=== PATIENT | male | born 1955 | race Caucasian/White ===

== ENCOUNTER 2018-04-07 10:59 | Inpatient (IN) | payer OTHER ==
[2018-04-07 11:24] VITALS: BMI 25.1
--- NOTE | 2018-04-07 12:17 | HP ---
CIWA Score - CIWA Score Nausea/Vomitin Muscle Tremors: 2 Anxiety: 2 Agitation: 1-Slight > Activity Paroxysmal Sweats: 1-Minimal Palms Moist Orientation: 1-Uncertain about Date Tacttile Disturbances: 2-Mild Itch/Numbness/Burn Auditory Disturbances: 0-None Visual Disturbances: 0-None Headache: 1-Very Mild CIWA-Ar Total Score: 12 Admission ROS S - HPI Chief Complaint: Patient presents ETOH withdrawal symptoms. Allergies/Adverse Reactions: Allergies Allergy/AdvReac Type Severity Reaction Status Date / Time Penicillins Allergy Severe Verified 04/07/18 11:38 History of Present Illness: Patient present with ETOH withdrawal symptoms. Patient also sniffs heroin 1-2x a week one bag a day. Patient on Suboxone therapy program at [facility]. Verified Suboxone dose of 10mg daily by Mrs. Alber GALLOWAY. Patient states he only uses Heroin when he does not take his Suboxone. Started sniffing Heroin at age 34. Last time used heroin yesterday. Took dose of Suboxone today at [facility] before coming here to [facility]. Patient would like to start to decrease current dose of Suboxone as he will eventually like to stop taking medication. Patient also drinks 1 pint of Vodka daily since past year. Denies any Seizures from ETOH use. Last drink this morning. Has PMH of HTN. Denies SI/HI and suicide attempts. Exam Limitations: No Limitations - Ebola screening Have you traveled outside of the country in the last 21 days: No (N) Have you had contact with anyone from an Ebola affected area: No Have you been sick,other than usual withdrawal symptoms: No Do you have a fever: No - Review of Systems Constitutional: Chills, Night Sweats, Changes in sleep EENT: reports: No Symptoms Reported Respiratory: reports: No Symptoms reported Cardiac: reports: No Symptoms Reported GI: reports: Diarrhea, Nausea, Poor Fluid Intake, Abdominal cramping : reports: No Symptoms Reported Musculoskeletal: reports: Back Pain, Joint Pain, Muscle Pain Integumentary: reports: Sweating Neuro: reports: Headache, Numbness, Tremors Endocrine: reports: No Symptoms Reported Hematology: reports: No Symptoms Reported Psychiatric: reports: Orientated x3, Anxious, Depressed Patient History - Patient Medical History Hx Anemia: No Hx Asthma: No Hx Chronic Obstructive Pulmonary Disease (COPD): No Hx Cancer: No Hx Cardiac Disorders: Yes (Pt states he has a R bundle branch block) Hx Congestive Heart Failure: No Hx Hypertension: Yes (Treated with Losartan) Hx Hypercholesterolemia: No Hx Pacemaker: No HX Cerebrovascular Accident: No Hx Seizures: No Hx Dementia: No Hx Diabetes: No Hx Gastrointestinal Disorders: No Hx Liver Disease: No Hx Genitourinary Disorders: No Hx Sexually Transmitted Disorders: No Hx Renal Disease (ESRD): No Hx Thyroid Disease: No Hx Human Immunodeficiency Virus (HIV): No Hx Hepatitis C: No Hx Depression: No Hx Suicide Attempt: No Hx Bipolar Disorder: No Hx Schizophrenia: No - Patient Surgical History Past Surgical History: No - PPD History Previous Implant?: Yes Documented Results: Negative w/o proof Implanted On Prior [facility] Admission?: No PPD to be Administered?: Yes - Smoking Cessation Smoking history: Current every day smoker Have you smoked in the past 12 months: Yes Aproximately how many cigarettes per day: 2 Hx Chewing Tobacco Use: No Initiated information on smoking cessation: Yes 'Breaking Loose' booklet given: 04/07/18 - Substance & Tx. History Hx Alcohol Use: Yes Hx Substance Use: Yes Substance Use Type: Alcohol, Heroin Hx Substance Use Treatment: Yes - Substances Abused Alcohol Route: Oral Frequency: Daily Amount used: 1 pint vodka Age of first use: 11 Date of Last Use: 04/07/18 Heroin Route: Inhalation Frequency: 1-2 times per week Amount used: 1 bag Age of first use: 37 Date of Last Use: 04/06/18 Family Disease History - Family Disease History Family Disease History: [place]: Mother (, Breast cancer), Other: Father ( , Cirrhosis) Admission Physical Exam [facility] - Vital Signs Vital Signs: Vital Signs - 24 hr 04/07/18 11:22 Temperature 98.5 F Pulse Rate 98 H Respiratory 20 Rate Blood Pressure 137/86 - Physical General Appearance: Yes: No Apparent Distress, Appropriately Dressed, Tremorous , Sweating, Anxious HEENTM: Yes: EOMI, Hearing grossly Normal, Normocephalic, Normal Voice, MARCI, Pharynx Normal Respiratory: Yes: Chest Non-Tender, Lungs Clear, Normal Breath Sounds, No Respiratory Distress, No Accessory Muscle Use Neck: Yes: No masses,lesions,Nodules, Supple Breast: Yes: Breast Exam Deferred Cardiology: Yes: Regular Rhythm, Regular Rate, S1, S2 Abdominal: Yes: Normal Bowel Sounds, Non Tender, Soft Genitourinary: Yes: Within Normal Limits Back: Yes: Muscle Spasm Musculoskeletal: Yes: full range of Motion, Gait Steady, Back pain, Muscle Pain Extremities: Yes: Normal Inspection, Normal Range of Motion, Non-Tender, Tremors 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 intact, Fully Oriented, Alert, Motor Strength 5/5, Depressed Affect Integumentary: Yes: Normal Color, Warm, Moist Lymphatic: Yes: Within Normal Limits - Diagnostic (1) Alcohol dependence with uncomplicated withdrawal Current Visit: Yes Status: Acute (2) Encounter for monitoring Suboxone maintenance therapy Current Visit: Yes Status: Chronic (3) Opioid dependence Current Visit: Yes Status: Acute Qualifiers: Substance use status: uncomplicated Qualified Code(s): F11.20 - Opioid dependence, uncomplicated (4) HTN (hypertension) Current Visit: Yes Status: Chronic Qualifiers: Hypertension type: essential hypertension Qualified Code(s): I10 - Essential (primary) hypertension (5) Anxiety Current Visit: Yes Status: Suspected Cleared for Admission [facility] - Detox or Rehab [facility] Level of Care: Medically Managed Detox Regimen/Protocol: Librium [facility] Breath Alcohol Content Breath Alcohol Content: 0.023 Urine Drug Screen - Results Drug Screen Negative: No Urine Drug Screen Results: OPI-Opiates
[2018-04-07] MEDS ORDERED: MAGNESIUM CITRATE 300 ML BOTTLE PO PRN (12:28)
[2018-04-07] MEDS ORDERED: P-EPHED 60MG/TRIPROLIDI 2.5MG TABLET PO PRN (12:28)
[2018-04-07] MEDS ORDERED: MAGNESIUM HYDROX 2400MG/30ML ORAL SUSPENSION 30 ML CUP PO PRN (12:28)
[2018-04-07] MEDS ORDERED: MAG HYDROX/AL HYDROX/SIMETH 30 ML UNIT-DOSE CUP PO PRN (12:28)
[2018-04-07] MEDS ORDERED: guaiFENesin/D-METHORPHAN HB 10 ML UNIT-DOSE CUPS PO PRN (12:28)
[2018-04-07] MEDS ORDERED: MENTHOL/PHENOL 1 EACH UD MM PRN (12:28)
[2018-04-07] MEDS ORDERED: LOPERAMIDE HCL 2 MG CAPSULE PO PRN (12:28)
[2018-04-07] MEDS ORDERED: NICOTINE POLACRILEX 2 MG GUM BUC PRN (12:28)
[2018-04-07] MEDS ORDERED: hydrOXYzine PAMOATE 50 MG CAPSULE (FP) PO PRN (12:28)
[2018-04-07] MEDS ORDERED: chlordiazePOXIDE HCL 25 MG CAPSULE PO PRN (12:30)
[2018-04-07] MEDS ORDERED: chlordiazePOXIDE HCL 25 MG CAPSULE PO ONE (13:00)
--- NOTE | 2018-04-07 14:19 | PN ---
S Progress Note Note: Results of Admission ECG noted. Patient reports history of Left Bundle Branch Block from previous ECG that he had done as an outpatient approx. 2 years ago. Patient also reports that he has had a previous Cardiac Evaluation ([place], [place] in the past for that finding and that No follow-up treatment was recommended by Information Technology Director at time of Initial Cardiac evaluation. Patient denies Chest Pain, Dizziness, and SOB at this time. Gavin Christie NP
--- NOTE | 2018-04-07 15:46 | CONSULT ---
[facility] Psychiatric Consult - Data Date of interview: 04/07/18 Admission source: [facility] Identifying data: Readmission to [facility] for this 63 y/o male seeking detox treatment on for heroin and alcohol dependence.Patient is single,a father of five,homeless,unemployed and supported on Public Assistance. Substance Abuse History: Confirmed by patient in my interview.Details in current [facility] report as follows : Smoking history: Current every day smoker. Have you smoked in the past 12 months: Yes. Aproximately how many cigarettes per day: 2. Hx Chewing Tobacco Use: No. Initiated information on smoking cessation: Yes. 'Breaking Loose' booklet given: 04/07/18. - Substance & Tx. History. Hx Alcohol Use: Yes. Hx Substance Use: Yes. Substance Use Type: Alcohol, Heroin. Hx Substance Use Treatment: Yes. - Substances Abused. Alcohol. Route: Oral. Frequency: Daily. Amount used: 1 pint vodka. Age of first use: 11. Date of Last Use: 04/07/18. Heroin. Route: Inhalation. Frequency: 1-2 times per week. Amount used: 1 bag. Age of first use: 37. Date of Last Use: 04/06/18 Medical History: Hypertension. Psychiatric History: Patient denies history of psychiatric hospitalizations or suicide attempts.Currently on suboxone maintenance ([facility] in the [place]). Physical/Sexual Abuse/Trauma History: No history reported. Additional Comment: Urine Drug Screen Results: OPI-Opiates.Noted. Mental Status Exam - Mental Status Exam Alert and Oriented to: Time, Place, Person Cognitive Function: Good Patient Appearance: Well Groomed Mood: Hopeful, Euthymic Affect: Appropriate, Normal Range Patient Behavior: Fatigued, Appropriate, Cooperative Speech Pattern: Clear, Appropriate Voice Loudness: Normal Thought Process: Intact, Goal Oriented Thought Disorder: Not Present Hallucinations: Denies Suicidal Ideation: Denies Homicidal Ideation: Denies Insight/Judgement: Poor Sleep: Well Appetite: Good Muscle strength/Tone: Normal Gait/Station: Normal Psychiatric Findings - Problem List ([place] 1, 2,3) (1) Alcohol dependence with uncomplicated withdrawal Current Visit: Yes Status: Acute (2) Opioid dependence Current Visit: Yes Status: Acute Qualifiers: Substance use status: uncomplicated Qualified Code(s): F11.20 - Opioid dependence, uncomplicated - Initial Treatment Plan Initial Treatment Plan: Psychoeducation.Sleep hygiene.Detoxification in progress.Observation.
[2018-04-07] MEDS: chlordiazePOXIDE HCL 25 MG CAPSULE PO SCH ×2 (17:24→22:17)
[2018-04-07] MEDS: IBUPROFEN 400 MG TABLET (FP) PO PRN (17:31)
[2018-04-07] MEDS: ACETAMINOPHEN 325 MG TABLET (FP) PO PRN (20:39)
[2018-04-07] MEDS: MELATONIN 5 MG TABLETS PO PRN (22:17)
[2018-04-07] MEDS: THIAMINE HCL 100 MG TABLET (FP) PO SCH (22:17)
[2018-04-08 00:10] LABS: URINE APPEARANCE CLEAR; URINE BILIRUBIN NEGATIVE (<2.0 mg/dL); URINE COLOR YELLOW; URINE GLUCOSE (UA) NEGATIVE (NEGATIVE); URINE KETONE NEGATIVE (NEGATIVE); URINE LEUK ESTERASE NEGATIVE (NEGATIVE); URINE NITRITE NEGATIVE (NEGATIVE); URINE PROTEIN NEGATIVE (NEGATIVE); URINE UROBILINOGEN NEGATIVE mg/dL (0.2-1.0)
[2018-04-08] MEDS: chlordiazePOXIDE HCL 25 MG CAPSULE PO SCH ×4 (09:57→22:10)
[2018-04-08 10:16] LABS: HEMOGLOBIN 11.4 GM/dL (11.7-16.9); MCH 31.2 pg (25.7-33.7); MCHC 33.5 g/dl (32.0-35.9); MEAN CELL VOLUME 93.2 fl (80-96); MEAN PLT VOLUME 8.7 fl (7.5-11.1); PLATELET COUNT 246 K/MM3 (134-434); RBC 3.65 M/mm3 (4.00-5.60); RDW 13.4 % (11.9-15.9); WHITE BLOOD COUNT 8.7 K/mm3 (4.0-10.0)
[2018-04-08] MEDS: LOSARTAN POTASSIUM 50 MG TABLET (FP) PO SCH (10:21)
[2018-04-08] MEDS: ASPIRIN 81 MG CHEWABLE TABLETS PO SCH (10:21)
[2018-04-08] MEDS: PRENATAL VITAMINS W/ FOLIC ACID TABLET (FP) PO SCH (10:21)
[2018-04-08] MEDS: BUPRENORPHINE/NALOXONE 8 MG/2 MG FILM PACKET SL SCH (10:21)
[2018-04-08] MEDS: IBUPROFEN 400 MG TABLET (FP) PO PRN ×2 (10:23→16:39)
--- NOTE | 2018-04-08 11:19 | EKG ---
Test Reason : Blood Pressure : / mmHG Vent. Rate : 074 BPM Atrial Rate : 074 BPM P-R Int : 166 ms QRS Dur : 138 ms QT Int : 428 ms P-R-T Axes : 003 001 085 degrees QTc Int : 475 ms NORMAL SINUS RHYTHM LEFT BUNDLE BRANCH BLOCK ABNORMAL ECG NO PREVIOUS ECGS AVAILABLE Confirmed by EDEN MENDES MD ([id number]) on 04/08/2018 11:19:00 AM Referred By: Confirmed By:EDEN MENDES MD
[2018-04-08 11:21] LABS: ALBUMIN 3.4 g/dl (3.4-5.0); ANION GAP 9 (8-16); BLOOD UREA NITROGEN 29 mg/dL (7-18); CALCIUM 8.8 mg/dL (8.5-10.1); CHLORIDE 102 mmol/L (98-107); CO2 27 mmol/L (21-32); GLUCOSE,RANDOM 93 mg/dL (74-106); POTASSIUM 4.2 mmol/L (3.5-5.1); SODIUM 138 mmol/L (136-145)
[2018-04-08 11:25] LABS: ALK PHOS 92 U/L (45-117); BILIRUBIN,TOTAL 0.5 mg/dL (0.2-1.0); CREATININE 0.8 mg/dL (0.7-1.3); SGOT/AST 25 U/L (15-37); SGPT/ALT 25 U/L (12-78)
--- NOTE | 2018-04-08 12:37 | PN ---
[facility] CIWA - CIWA Score Nausea/Vomitin-No Nausea/No Vomiting Muscle Tremors: 4-Moderate,w/Arms Extend Anxiety: 4-Mod. Anxious/Guarded Agitation: 3 Paroxysmal Sweats: 2 Orientation: 0-Oriented Tacttile Disturbances: 2-Mild Itch/Numbness/Burn Auditory Disturbances: 2-Mild Harshness/Frighten Visual Disturbances: 0-None Headache: 0-None Present CIWA-Ar Total Score: 17 S Progress Note (SOAP) Subjective: Sweating, Anxious, Interrupted Sleep, Tremors. Objective: PATIENT A & O X 3, OBSERVED AMBULATING ON UNIT. NO ACUTE DISTRESS. PATIENT DENIES CHEST PAIN, SOB, AND DIZZINESS. 04/08/18 12:36 Vital Signs Temperature 97.1 F L 04/08/18 09:42 Pulse Rate 70 04/08/18 09:42 Respiratory Rate 18 04/08/18 09:42 Blood Pressure 172/101 04/08/18 09:43 O2 Sat by Pulse Oximetry (%) Laboratory Tests 04/07/18 04/07/18 04/08/18 11:00 23:50 08:50 WBC 8.7 RBC 3.65 L Hgb 11.4 L Hct 34.0 L MCV 93.2 MCH 31.2 MCHC 33.5 RDW 13.4 Plt Count 246 MPV 8.7 Sodium Potassium Chloride Carbon Dioxide Anion Gap BUN Creatinine Creat Clearance w eGFR Random Glucose Calcium Total Bilirubin AST ALT Alkaline Phosphatase Total Protein Albumin Urine Color Yellow Urine Appearance Clear Urine pH 5.0 Ur Specific [place] 1.021 Urine Protein Negative Urine Glucose (UA) Negative Urine Ketones Negative Urine Blood Negative Urine Nitrite Negative Urine Bilirubin Negative Urine Urobilinogen Negative Ur Leukocyte Esterase Negative HIV 1&2 Antibody Screen Negative HIV P24 Antigen Negative 04/08/18 08:50 WBC RBC Hgb Hct MCV MCH MCHC RDW Plt Count MPV Sodium 138 Potassium 4.2 Chloride 102 Carbon Dioxide 27 Anion Gap 9 BUN 29 H Creatinine 0.8 Creat Clearance w eGFR > 60 Random Glucose 93 Calcium 8.8 Total Bilirubin 0.5 AST 25 ALT 25 Alkaline Phosphatase 92 Total Protein 7.0 Albumin 3.4 Urine Color Urine Appearance Urine pH Ur Specific [place] Urine Protein Urine Glucose (UA) Urine Ketones Urine Blood Urine Nitrite Urine Bilirubin Urine Urobilinogen Ur Leukocyte Esterase HIV 1&2 Antibody Screen HIV P24 Antigen LABS NOTED. RPR RESULT PENDING. 04/08/18 12:37 Assessment: 04/08/18 12:37 WITHDRAWAL SYMPTOMS. Plan: CONTINUE DETOX. CONTINUE TO MONITOR BP. INCREASE DAILY PO FLUID INTAKE.
--- NOTE | 2018-04-08 15:00 | PN ---
S Progress Note Note: AFTERNOON BP READING NOTED. ACCORDING TO PHARMACIST AT PATIENT'S PHARMACY ( [facility]), PATIENT PRESCRIBED CARDURA, 4 MG, PO QHS BY OUTSIDE MEDICAL PROVIDER. CARDURA RECONCILED TO START AGAIN TONIGHT. CLONIDINE, 0.2 MG PO X 1 ORDERED TO HELP REDUCE BP FOR TIME BEING. Gavin JOHNSON SAS STATISTICAL PROGRAMMER
[2018-04-08] MEDS ORDERED: cloNIDine HCL 0.1 MG TABLET PO ONE (15:05)
--- NOTE | 2018-04-08 17:04 | PN ---
S Progress Note Note: Patient with asymptomatic in for alcohol detox, current elevated BP 164/104 and 169/101. Patient was tx with clonidine 0.2mg at for BP 175/89. 04/07/18 04/07/18 04/08/18 17:23 21:43 09:42 Temperature 98.3 F 97.4 F L 97.1 F L Pulse Rate 87 90 70 Respiratory 18 18 18 Rate Blood Pressure 145/96 147/95 163/103 04/08/18 04/08/18 09:43 13:27 Temperature 97.7 F Pulse Rate 73 Respiratory 18 Rate Blood Pressure 172/101 175/89 - ETOH withdrawal symptoms Plan: one stat dose librium 25 mg flexeril 5mg TID increase fluids continue to monitor
[2018-04-08] MEDS ORDERED: chlordiazePOXIDE HCL 25 MG CAPSULE PO ONE (17:30)
[2018-04-08] MEDS: IBUPROFEN 600 MG TABLET (FP) PO PRN (20:03)
--- NOTE | 2018-04-08 20:18 | PN ---
[facility] Progress Note Note: Vital Signs Temperature 97.2 F L 04/08/18 17:29 Pulse Rate 81 04/08/18 19:53 Respiratory Rate 20 04/08/18 19:53 Blood Pressure 176/104 04/08/18 19:53 O2 Sat by Pulse Oximetry (%) asymptomatic elevated BP. Patient scheduled for cardura 4mg at 10pm, dose schedule changed to be given now increase fluids continue to monitor
[2018-04-08] MEDS ORDERED: DOXAZOSIN MESYLATE 4 MG TABLET PO SCH (22:00)
[2018-04-08] MEDS: DOXAZOSIN MESYLATE 4 MG TABLET PO SCH (22:09)
[2018-04-08] MEDS: THIAMINE HCL 100 MG TABLET (FP) PO SCH (22:10)
[2018-04-08] MEDS: CYCLOBENZAPRINE HCL 5 MG TABLET PO SCH (22:10)
[2018-04-08] MEDS: MELATONIN 5 MG TABLETS PO PRN (22:11)
[2018-04-09] MEDS: chlordiazePOXIDE HCL 25 MG CAPSULE PO SCH ×2 (05:47→10:29)
[2018-04-09] MEDS: CYCLOBENZAPRINE HCL 5 MG TABLET PO SCH ×3 (05:47→22:24)
[2018-04-09] MEDS: IBUPROFEN 600 MG TABLET (FP) PO PRN ×3 (05:48→18:51)
[2018-04-09] MEDS ORDERED: cloNIDine HCL 0.1 MG TABLET PO ONE ×2 (06:41→16:15)
--- NOTE | 2018-04-09 06:44 | PN ---
[facility] Progress Note Note: Patient's blood pressure is B/P 165/93. Patient is asymptomatic Vital Signs Temperature 97.3 F L 04/09/18 06:24 Pulse Rate 65 04/09/18 06:24 Respiratory Rate 18 04/09/18 06:24 Blood Pressure 165/93 04/09/18 06:24 O2 Sat by Pulse Oximetry (%) Action: Clonidine 0.1mg tablet oral ordered
[2018-04-09] MEDS: PRENATAL VITAMINS W/ FOLIC ACID TABLET (FP) PO SCH (10:29)
[2018-04-09] MEDS: LOSARTAN POTASSIUM 50 MG TABLET (FP) PO SCH (10:29)
[2018-04-09] MEDS: BUPRENORPHINE/NALOXONE 8 MG/2 MG FILM PACKET SL SCH (10:29)
[2018-04-09] MEDS: ASPIRIN 81 MG CHEWABLE TABLETS PO SCH (10:29)
--- NOTE | 2018-04-09 15:27 | PN ---
[facility] CIWA - CIWA Score Nausea/Vomitin-No Nausea/No Vomiting Muscle Tremors: 2 Anxiety: 4-Mod. Anxious/Guarded Agitation: 2 Paroxysmal Sweats: 2 Orientation: 0-Oriented Tacttile Disturbances: 1-Very Mild Itch/Numbness Auditory Disturbances: 1-Very Mild Visual Disturbances: 2-Mild Sensitivity Headache: 0-None Present CIWA-Ar Total Score: 14 S Progress Note (SOAP) Subjective: Tremors, Anxious, Sweating. Objective: PATIENT A & O X 3, OBSERVED AMBULATING ON UNIT. NO ACUTE DISTRESS. PATIENT DENIES CHEST PAIN, SOB, AND DIZZINESS. 04/09/18 15:28 Vital Signs Temperature 97.1 F L 04/09/18 14:07 Pulse Rate 76 04/09/18 14:07 Respiratory Rate 18 04/09/18 14:07 Blood Pressure 144/89 04/09/18 14:07 O2 Sat by Pulse Oximetry (%) Laboratory Tests 04/07/18 04/07/18 04/08/18 11:00 23:50 08:50 WBC 8.7 RBC 3.65 L Hgb 11.4 L Hct 34.0 L MCV 93.2 MCH 31.2 MCHC 33.5 RDW 13.4 Plt Count 246 MPV 8.7 Sodium Potassium Chloride Carbon Dioxide Anion Gap BUN Creatinine Creat Clearance w eGFR Random Glucose Calcium Total Bilirubin AST ALT Alkaline Phosphatase Total Protein Albumin Urine Color Yellow Urine Appearance Clear Urine pH 5.0 Ur Specific [place] 1.021 Urine Protein Negative Urine Glucose (UA) Negative Urine Ketones Negative Urine Blood Negative Urine Nitrite Negative Urine Bilirubin Negative Urine Urobilinogen Negative Ur Leukocyte Esterase Negative RPR Titer HIV 1&2 Antibody Screen Negative HIV P24 Antigen Negative 04/08/18 04/08/18 08:50 08:50 WBC RBC Hgb Hct MCV MCH MCHC RDW Plt Count MPV Sodium 138 Potassium 4.2 Chloride 102 Carbon Dioxide 27 Anion Gap 9 BUN 29 H Creatinine 0.8 Creat Clearance w eGFR > 60 Random Glucose 93 Calcium 8.8 Total Bilirubin 0.5 AST 25 ALT 25 Alkaline Phosphatase 92 Total Protein 7.0 Albumin 3.4 Urine Color Urine Appearance Urine pH Ur Specific [place] Urine Protein Urine Glucose (UA) Urine Ketones Urine Blood Urine Nitrite Urine Bilirubin Urine Urobilinogen Ur Leukocyte Esterase RPR Titer Nonreactive HIV 1&2 Antibody Screen HIV P24 Antigen LABS NOTED. 04/09/18 15:28 Assessment: 04/09/18 15:28 WITHDRAWAL SYMPTOMS. Plan: CONTINUE DETOX. START LISINOPRIL, 10 MG PO DAILY FOR PERSISTENTLY ELEVATED BP.
[2018-04-09] MEDS ORDERED: LISINOPRIL 10 MG TABLET (FP) PO ONE (15:45)
[2018-04-09] MEDS: chlordiazePOXIDE 5 MG CAPSULE PO SCH ×2 (16:17→22:24)
[2018-04-09] MEDS: DOXAZOSIN MESYLATE 4 MG TABLET PO SCH (21:04)
[2018-04-09] MEDS: THIAMINE HCL 100 MG TABLET (FP) PO SCH (22:23)
[2018-04-09] MEDS: MELATONIN 5 MG TABLETS PO PRN (22:23)
[2018-04-10] MEDS: chlordiazePOXIDE 5 MG CAPSULE PO SCH ×2 (05:25→10:25)
[2018-04-10] MEDS: CYCLOBENZAPRINE HCL 5 MG TABLET PO SCH ×3 (05:25→22:21)
[2018-04-10] MEDS: IBUPROFEN 600 MG TABLET (FP) PO PRN ×2 (06:04→16:53)
[2018-04-10] MEDS ORDERED: LISINOPRIL 10 MG TABLET (FP) PO SCH (10:00)
[2018-04-10] MEDS: ASPIRIN 81 MG CHEWABLE TABLETS PO SCH (10:25)
[2018-04-10] MEDS: LOSARTAN POTASSIUM 50 MG TABLET (FP) PO SCH (10:25)
[2018-04-10] MEDS: PRENATAL VITAMINS W/ FOLIC ACID TABLET (FP) PO SCH (10:25)
[2018-04-10] MEDS: BUPRENORPHINE/NALOXONE 8 MG/2 MG FILM PACKET SL SCH (10:26)
--- NOTE | 2018-04-10 15:02 | PN ---
[facility] Progress Note (SOAP) Subjective: Anxious, Sweating. Objective: PATIENT A & O X 3, OBSERVED AMBULATING ON UNIT. NO ACUTE DISTRESS. 04/10/18 15:01 Vital Signs Temperature 97.1 F L 04/10/18 14:07 Pulse Rate 88 04/10/18 14:07 Respiratory Rate 20 04/10/18 14:07 Blood Pressure 137/87 04/10/18 14:07 O2 Sat by Pulse Oximetry (%) Laboratory Tests 04/07/18 04/07/18 04/08/18 11:00 23:50 08:50 WBC 8.7 RBC 3.65 L Hgb 11.4 L Hct 34.0 L MCV 93.2 MCH 31.2 MCHC 33.5 RDW 13.4 Plt Count 246 MPV 8.7 Sodium Potassium Chloride Carbon Dioxide Anion Gap BUN Creatinine Creat Clearance w eGFR Random Glucose Calcium Total Bilirubin AST ALT Alkaline Phosphatase Total Protein Albumin Urine Color Yellow Urine Appearance Clear Urine pH 5.0 Ur Specific [place] 1.021 Urine Protein Negative Urine Glucose (UA) Negative Urine Ketones Negative Urine Blood Negative Urine Nitrite Negative Urine Bilirubin Negative Urine Urobilinogen Negative Ur Leukocyte Esterase Negative RPR Titer HIV 1&2 Antibody Screen Negative HIV P24 Antigen Negative 04/08/18 04/08/18 08:50 08:50 WBC RBC Hgb Hct MCV MCH MCHC RDW Plt Count MPV Sodium 138 Potassium 4.2 Chloride 102 Carbon Dioxide 27 Anion Gap 9 BUN 29 H Creatinine 0.8 Creat Clearance w eGFR > 60 Random Glucose 93 Calcium 8.8 Total Bilirubin 0.5 AST 25 ALT 25 Alkaline Phosphatase 92 Total Protein 7.0 Albumin 3.4 Urine Color Urine Appearance Urine pH Ur Specific [place] Urine Protein Urine Glucose (UA) Urine Ketones Urine Blood Urine Nitrite Urine Bilirubin Urine Urobilinogen Ur Leukocyte Esterase RPR Titer Nonreactive HIV 1&2 Antibody Screen HIV P24 Antigen LABS NOTED. Assessment: 04/10/18 15:01 WITHDRAWAL SYMPTOMS. Plan: CONTINUE DETOX. INCREASE DAILY PO FLUID INTAKE. PATIENT SCHEDULED FOR D/C TOMORROW.
[2018-04-10] MEDS: chlordiazePOXIDE HCL 10 MG CAPSULE PO SCH ×2 (16:40→22:21)
--- NOTE | 2018-04-10 17:20 | PN ---
[facility] Progress Note Note: I was informed that by RN that pt's Bp @ 4.30p was 182/105. A & O x 3 and has steady gait, denies chest pains, palpitations, dizziness, headache nor neuro symptoms,. Pt medicated with Librium post-BP. Bp to be repeated in an hr, pt being monitored
[2018-04-10] MEDS: DOXAZOSIN MESYLATE 4 MG TABLET PO SCH (22:21)
[2018-04-10] MEDS: THIAMINE HCL 100 MG TABLET (FP) PO SCH (22:22)
[2018-04-10] MEDS: MELATONIN 5 MG TABLETS PO PRN (22:22)
[2018-04-11] MEDS: ACETAMINOPHEN 325 MG TABLET (FP) PO PRN ×2 (01:48→11:59)
[2018-04-11] MEDS: CYCLOBENZAPRINE HCL 5 MG TABLET PO SCH ×2 (05:29→13:01)
[2018-04-11] MEDS: chlordiazePOXIDE HCL 10 MG CAPSULE PO SCH ×2 (05:29→10:15)
[2018-04-11] MEDS: PRENATAL VITAMINS W/ FOLIC ACID TABLET (FP) PO SCH (10:15)
[2018-04-11] MEDS: ASPIRIN 81 MG CHEWABLE TABLETS PO SCH (10:15)
[2018-04-11] MEDS: LOSARTAN POTASSIUM 50 MG TABLET (FP) PO SCH (10:15)
[2018-04-11] MEDS: BUPRENORPHINE/NALOXONE 8 MG/2 MG FILM PACKET SL SCH (10:16)
[2018-04-11] MEDS: IBUPROFEN 600 MG TABLET (FP) PO PRN (10:17)
--- NOTE | 2018-04-11 12:18 | DS ---
[facility] Detox Discharge Summary Admission Date: 04/07/18 Discharge Date: 04/11/18 - History Present History: Alcohol Dependence, Opioid Dependence - Physical Exam Results Vital Signs: Vital Signs Temperature 97.2 F L 04/11/18 09:08 Pulse Rate 74 04/11/18 09:08 Respiratory Rate 18 04/11/18 09:08 Blood Pressure 146/89 04/11/18 09:08 O2 Sat by Pulse Oximetry (%) Pertinent Admission Physical Exam Findings: Vital Signs Temperature 97.2 F L 04/11/18 09:08 Pulse Rate 74 04/11/18 09:08 Respiratory Rate 18 04/11/18 09:08 Blood Pressure 146/89 04/11/18 09:08 O2 Sat by Pulse Oximetry (%) Laboratory Last Values WBC 8.7 K/mm3 (4.0-10.0) 04/08/18 08:50 RBC 3.65 M/mm3 (4.00-5.60) L 04/08/18 08:50 Hgb 11.4 GM/dL (11.7-16.9) L 04/08/18 08:50 Hct 34.0 % (35.4-49) L 04/08/18 08:50 MCV 93.2 fl (80-96) 04/08/18 08:50 MCH 31.2 pg (25.7-33.7) 04/08/18 08:50 MCHC 33.5 g/dl (32.0-35.9) 04/08/18 08:50 RDW 13.4 % (11.9-15.9) 04/08/18 08:50 Plt Count 246 K/MM3 (134-434) 04/08/18 08:50 MPV 8.7 fl (7.5-11.1) 04/08/18 08:50 Sodium 138 mmol/L (136-145) 04/08/18 08:50 Potassium 4.2 mmol/L (3.5-5.1) 04/08/18 08:50 Chloride 102 mmol/L (98-107) 04/08/18 08:50 Carbon Dioxide 27 mmol/L (21-32) 04/08/18 08:50 Anion Gap 9 (8-16) 04/08/18 08:50 BUN 29 mg/dL (7-18) H 04/08/18 08:50 Creatinine 0.8 mg/dL (0.7-1.3) 04/08/18 08:50 Creat Clearance w eGFR > 60 (>60) 04/08/18 08:50 Random Glucose 93 mg/dL (74-106) 04/08/18 08:50 Calcium 8.8 mg/dL (8.5-10.1) 04/08/18 08:50 Total Bilirubin 0.5 mg/dL (0.2-1.0) 04/08/18 08:50 AST 25 U/L (15-37) 04/08/18 08:50 ALT 25 U/L (12-78) 04/08/18 08:50 Alkaline Phosphatase 92 U/L (45-117) 04/08/18 08:50 Total Protein 7.0 g/dl (6.4-8.2) 04/08/18 08:50 Albumin 3.4 g/dl (3.4-5.0) 04/08/18 08:50 Urine Color Yellow 04/07/18 23:50 Urine Appearance Clear 04/07/18 23:50 Urine pH 5.0 (5.0-8.0) 04/07/18 23:50 Ur Specific [place] 1.021 (1.001-1.035) 04/07/18 23:50 Urine Protein Negative (NEGATIVE) 04/07/18 23:50 Urine Glucose (UA) Negative (NEGATIVE) 04/07/18 23:50 Urine Ketones Negative (NEGATIVE) 04/07/18 23:50 Urine Blood Negative (NEGATIVE) 04/07/18 23:50 Urine Nitrite Negative (NEGATIVE) 04/07/18 23:50 Urine Bilirubin Negative (<2.0 mg/dL) 04/07/18 23:50 Urine Urobilinogen Negative mg/dL (0.2-1.0) 04/07/18 23:50 Ur Leukocyte Esterase Negative (NEGATIVE) 04/07/18 23:50 RPR Titer Nonreactive (NONREACTIVE) 04/08/18 08:50 HIV 1&2 Antibody Screen Negative 04/07/18 11:00 HIV P24 Antigen Negative 04/07/18 11:00 - Treatment Hospital Course: Detox Protocol Followed, Detoxed Safely, Responded well, Discharged Condition Good, Rehab Referral Accepted Patient has Accepted a Rehab Referral to: [facility] - Medication Discharge Medications: Ambulatory Orders Aspirin [ASA -] 81 mg PO DAILY 04/07/18 Buprenorphine/Naloxone [Suboxone 2Mg/0.5MG Sl Film -] 5 combo SL DAILY 04/07/18 Losartan Potassium [Cozaar] 100 mg PO DAILY 04/07/18 Doxazosin Mesylate [Cardura] 4 mg PO HS 04/08/18 - Diagnosis (1) Alcohol dependence with uncomplicated withdrawal Current Visit: Yes Status: Acute (2) Opioid dependence Current Visit: Yes Status: Acute Qualifiers: Substance use status: uncomplicated Qualified Code(s): F11.20 - Opioid dependence, uncomplicated (3) HTN (hypertension) Current Visit: Yes Status: Chronic Qualifiers: Hypertension type: essential hypertension Qualified Code(s): I10 - Essential (primary) hypertension (4) Anxiety Current Visit: Yes Status: Suspected - AMA Did Patient Leave Against Medical Advice: No
--- NOTE | 2018-04-11 12:19 | HP ---
[facility] Rehab Assess/Revision - Admission History Admitted to Rehab from: [facility] [place] Date of Admission to Rehab: 04/11/18 - Vital signs Vital Signs: Vital Signs Period Temp Pulse Resp BP Sys/Castaneda Pulse Ox Last 24 Hr 97.1 F-98.1 F 69-88 16-20 137-182/87-107 - Findings Detox History & Physical reviewed: Yes Concur with findings: Yes Inpatient Rehab Admission - Initial Determination Are CD services needed?: Yes Free of communicable disease: Yes Not in need of hospitalization: Yes - Rehab Admission Criteria Previous failed treatment: Yes Poor recovery environment: Yes Comorbidities: Yes Lacks judgement: Yes Patient is meeting Inpatient Rehab admission criteria:: Yes
[2018-04-11 13:51] VITALS: BP 159/97; PULSE 79; TEMP 97.8
== END 2018-04-11 13:04 | disposition other institution (70) | DRG 773 ==
LOC: YASAS 10:59 → Y3N 12:51
PROVIDERS: ADMIT Family Medicine Addiction Medicine; ATTEND Family Medicine Addiction Medicine
PROC: HZ2ZZZZ Detoxification Services for Substance Abuse Treatment (ICD-10-PCS; principal; 2018-04-07)
DX: F11.20 Opioid dependence, uncomplicated (principal); F10.230 Alcohol dependence with withdrawal, uncomplicated; F41.9 Anxiety disorder, unspecified; I10 Essential (primary) hypertension; Z86.79 Personal history of other diseases of the circulatory system; Z51.81 Encounter for therapeutic drug level monitoring; Z88.8 Allergy status to other drugs, medicaments and biological substances; F17.210 Nicotine dependence, cigarettes, uncomplicated
CPT/HCPCS: 36415; 80053; 81003; 85027; 86593; 87389; 93005; 93010; J0735

== ENCOUNTER 2018-04-11 13:21 | Inpatient (IN) | payer OTHER ==
[~2018-04-11 13:21] MED LIST: LOPERAMIDE HCL 2 MG CAPSULE PO PRN; MAG HYDROX/AL HYDROX/SIMETH 30 ML UNIT-DOSE CUP PO PRN; MAGNESIUM CITRATE 300 ML BOTTLE PO PRN; MAGNESIUM HYDROX 2400MG/30ML ORAL SUSPENSION 30 ML CUP PO PRN; MENTHOL/PHENOL 1 EACH UD MM PRN; NICOTINE POLACRILEX 2 MG GUM BUC PRN; P-EPHED 60MG/TRIPROLIDI 2.5MG TABLET PO PRN; guaiFENesin/D-METHORPHAN HB 10 ML UNIT-DOSE CUPS PO PRN
[2018-04-11] MEDS: IBUPROFEN 400 MG TABLET (FP) PO PRN (18:35)
[2018-04-11] MEDS: hydrOXYzine PAMOATE 50 MG CAPSULE (FP) PO PRN (18:36)
[2018-04-11] MEDS: DOXAZOSIN MESYLATE 4 MG TABLET PO SCH (21:36)
[2018-04-11] MEDS: THIAMINE HCL 100 MG TABLET (FP) PO SCH (21:36)
[2018-04-11] MEDS: MELATONIN 5 MG TABLETS PO PRN (21:37)
[2018-04-12] MEDS: hydrOXYzine PAMOATE 50 MG CAPSULE (FP) PO PRN ×2 (06:44→21:29)
[2018-04-12] MEDS: IBUPROFEN 400 MG TABLET (FP) PO PRN ×2 (06:45→14:25)
--- NOTE | 2018-04-12 09:49 | HP ---
Psychiatrist Admission - Data Date of interview: 04/12/18 Admission source: [address] [place] [address] detox Identifying data: this is the first admission to [address] [place] [address] inpatient rehabilitation for this 63 yo single father of 5 ,homeless,supported by PA. Medical History: HTN Psychiatric History: Patient denies psychiatric history,no admissions,no suicidal history. Physical/Sexual Abuse/Trauma History: denies Vital Signs: Vital Signs - 24 hr 04/11/18 04/11/18 04/11/18 15:42 22:13 23:45 Temperature 98.1 F 98.4 F Pulse Rate 90 78 85 Respiratory 18 18 Rate Blood Pressure 139/99 163/104 145/92 04/12/18 04/12/18 03:30 06:46 Temperature 98.5 F Pulse Rate 78 Respiratory 18 18 Rate Blood Pressure 152/103 Allergies/Adverse Reactions: Allergies Allergy/AdvReac Type Severity Reaction Status Date / Time Penicillins Allergy Severe Verified 04/07/18 11:38 lisinopril AdvReac Cough Verified 04/09/18 15:47 Date of last physical exam: 04/09/18 Concur with the findings of this exam: Yes - Substance Abuse/Tx History Hx Alcohol Use: Yes (reports drinking since 11 yo,I pint of vodka daiy) Hx Substance Use: Yes (heroin since 37 yo,1 bag daily) Substance Use Type: Alcohol, Heroin Hx Substance Use Treatment: Yes (this is his first inpatient rehabilitation treatment) Mental Status Exam - Mental Status Exam Alert and Oriented to: Time, Place, Person Cognitive Function: Grossly Intact Patient Appearance: Unkempt Mood: Euthymic Affect: Mood Congruent, Normal Range Patient Behavior: Cooperative Speech Pattern: Clear Voice Loudness: Normal Thought Process: Goal Oriented Thought Disorder: Not Present Hallucinations: Denies Suicidal Ideation: Denies Homicidal Ideation: Denies Insight/Judgement: Fair Sleep: Fair Appetite: Fair Muscle strength/Tone: Normal Gait/Station: Normal Psychiatric Findings - Problem List ([place] 1, 2,3) (1) Alcohol dependence with uncomplicated withdrawal Current Visit: Yes Status: Chronic (2) Opioid dependence Current Visit: Yes Status: Chronic Qualifiers: Substance use status: uncomplicated Qualified Code(s): F11.20 - Opioid dependence, uncomplicated (3) Encounter for monitoring Suboxone maintenance therapy Current Visit: Yes Status: Chronic (4) HTN (hypertension) Current Visit: Yes Status: Chronic Qualifiers: Hypertension type: essential hypertension Qualified Code(s): I10 - Essential (primary) hypertension - Initial Treatment Plan Initial Treatment Plan: Will monitor progress.
[2018-04-12] MEDS: LOSARTAN POTASSIUM 50 MG TABLET (FP) PO SCH (10:35)
[2018-04-12] MEDS: PRENATAL VITAMINS W/ FOLIC ACID TABLET (FP) PO SCH (10:35)
[2018-04-12] MEDS: NICOTINE 14 MG/24 HOURS TOPICAL PATCH TD SCH (10:35)
[2018-04-12] MEDS: ASPIRIN 81 MG CHEWABLE TABLETS PO SCH (10:35)
[2018-04-12] MEDS: ACETAMINOPHEN 325 MG TABLET (FP) PO PRN (10:38)
[2018-04-12] MEDS: BUPRENORPHINE/NALOXONE 8 MG/2 MG FILM PACKET SL SCH (14:09)
[2018-04-12] MEDS ORDERED: cloNIDine HCL 0.1 MG TABLET PO ONE (20:14)
--- NOTE | 2018-04-12 20:15 | PN ---
S Progress Note Note: Vital Signs Temperature 98.5 F 04/12/18 06:46 Pulse Rate 78 04/12/18 06:46 Respiratory Rate 18 04/12/18 06:46 Blood Pressure 152/103 04/12/18 06:46 O2 Sat by Pulse Oximetry (%) patient with elevated BP. clonidine 0.2 mg one dose increase fluids continue to monitor
[2018-04-12] MEDS: THIAMINE HCL 100 MG TABLET (FP) PO SCH (21:28)
[2018-04-12] MEDS: DOXAZOSIN MESYLATE 4 MG TABLET PO SCH (21:28)
--- NOTE | 2018-04-12 21:33 | PN ---
S Progress Note Note: Vital Signs Temperature 98.5 F 04/12/18 06:46 Pulse Rate 78 04/12/18 06:46 Respiratory Rate 18 04/12/18 06:46 Blood Pressure 152/103 04/12/18 06:46 O2 Sat by Pulse Oximetry (%) Patient has had elevatd BP since admission to detox. On cardura with mild improvement. patient is due for his scheduled Cardura at 10 PM. Patient to start HCTZ 25 mg BID in the AM Continue to monitor patient
[2018-04-12] MEDS: HYDROCHLOROTHIAZIDE 25 MG TABLET (FP) PO SCH (22:04)
[2018-04-13] MEDS: IBUPROFEN 400 MG TABLET (FP) PO PRN ×2 (06:39→21:31)
[2018-04-13] MEDS ORDERED: cloNIDine HCL 0.1 MG TABLET PO ONE (06:39)
--- NOTE | 2018-04-13 06:39 | PN ---
[facility] Progress Note Note: Patiet's blood pressure this morning is B/P 159/101. Patient is asymptomatic Action: Clonidine 0.1mg tablet ordered
[2018-04-13] MEDS: PRENATAL VITAMINS W/ FOLIC ACID TABLET (FP) PO SCH (10:14)
[2018-04-13] MEDS: NICOTINE 14 MG/24 HOURS TOPICAL PATCH TD SCH (10:14)
[2018-04-13] MEDS: ASPIRIN 81 MG CHEWABLE TABLETS PO SCH (10:14)
[2018-04-13] MEDS: BUPRENORPHINE/NALOXONE 8 MG/2 MG FILM PACKET SL SCH (10:14)
[2018-04-13] MEDS: HYDROCHLOROTHIAZIDE 25 MG TABLET (FP) PO SCH ×2 (10:15→21:31)
[2018-04-13] MEDS: LOSARTAN POTASSIUM 50 MG TABLET (FP) PO SCH (10:15)
[2018-04-13] MEDS: THIAMINE HCL 100 MG TABLET (FP) PO SCH (21:31)
[2018-04-13] MEDS: DOXAZOSIN MESYLATE 4 MG TABLET PO SCH (21:31)
[2018-04-13] MEDS: MELATONIN 5 MG TABLETS PO PRN (21:31)
[2018-04-14] MEDS: PRENATAL VITAMINS W/ FOLIC ACID TABLET (FP) PO SCH (10:53)
[2018-04-14] MEDS: BUPRENORPHINE/NALOXONE 8 MG/2 MG FILM PACKET SL SCH (10:53)
[2018-04-14] MEDS: ASPIRIN 81 MG CHEWABLE TABLETS PO SCH (10:53)
[2018-04-14] MEDS: NICOTINE 14 MG/24 HOURS TOPICAL PATCH TD SCH (10:53)
[2018-04-14] MEDS: LOSARTAN POTASSIUM 50 MG TABLET (FP) PO SCH (10:53)
[2018-04-14] MEDS: HYDROCHLOROTHIAZIDE 25 MG TABLET (FP) PO SCH ×2 (10:53→21:21)
[2018-04-14] MEDS: IBUPROFEN 400 MG TABLET (FP) PO PRN ×2 (10:54→20:06)
[2018-04-14] MEDS: ACETAMINOPHEN 325 MG TABLET (FP) PO PRN (14:18)
[2018-04-14] MEDS: DOXAZOSIN MESYLATE 4 MG TABLET PO SCH (21:22)
[2018-04-14] MEDS: MELATONIN 5 MG TABLETS PO PRN (21:22)
[2018-04-14] MEDS: THIAMINE HCL 100 MG TABLET (FP) PO SCH (21:22)
[2018-04-15] MEDS: ACETAMINOPHEN 325 MG TABLET (FP) PO PRN ×2 (06:37→14:41)
[2018-04-15] MEDS: HYDROCHLOROTHIAZIDE 25 MG TABLET (FP) PO SCH ×2 (10:30→21:33)
[2018-04-15] MEDS: LOSARTAN POTASSIUM 50 MG TABLET (FP) PO SCH (10:30)
[2018-04-15] MEDS: BUPRENORPHINE/NALOXONE 8 MG/2 MG FILM PACKET SL SCH (10:30)
[2018-04-15] MEDS: PRENATAL VITAMINS W/ FOLIC ACID TABLET (FP) PO SCH (10:30)
[2018-04-15] MEDS: NICOTINE 14 MG/24 HOURS TOPICAL PATCH TD SCH (10:30)
[2018-04-15] MEDS: ASPIRIN 81 MG CHEWABLE TABLETS PO SCH (10:30)
[2018-04-15] MEDS: IBUPROFEN 400 MG TABLET (FP) PO PRN ×2 (10:31→21:35)
[2018-04-15] MEDS: DOXAZOSIN MESYLATE 4 MG TABLET PO SCH (21:33)
[2018-04-15] MEDS: MELATONIN 5 MG TABLETS PO PRN (21:34)
[2018-04-15] MEDS: THIAMINE HCL 100 MG TABLET (FP) PO SCH (21:34)
[2018-04-16] MEDS: BUPRENORPHINE/NALOXONE 8 MG/2 MG FILM PACKET SL SCH (10:22)
[2018-04-16] MEDS: NICOTINE 14 MG/24 HOURS TOPICAL PATCH TD SCH (10:22)
[2018-04-16] MEDS: PRENATAL VITAMINS W/ FOLIC ACID TABLET (FP) PO SCH (10:22)
[2018-04-16] MEDS: ASPIRIN 81 MG CHEWABLE TABLETS PO SCH (10:22)
[2018-04-16] MEDS: LOSARTAN POTASSIUM 50 MG TABLET (FP) PO SCH (10:22)
[2018-04-16] MEDS: HYDROCHLOROTHIAZIDE 25 MG TABLET (FP) PO SCH ×2 (10:22→21:39)
[2018-04-16] MEDS: IBUPROFEN 400 MG TABLET (FP) PO PRN ×2 (10:23→21:40)
--- NOTE | 2018-04-16 12:43 | PN ---
S Progress Note Note: PATIENT SEEN FOR EVALUATION OF SWELLING OF FEET. HAS HX OF HTN. ON HCTZ. PHYSICAL EXAM SHOW +1 PEDAL EDEMA. PATIENT ADVISED TO ELEVATE FEET WHILE IN BED AND CONTINUE TO MONITOR CLINICALLY. Vital Signs Temperature 97.8 F 04/16/18 06:56 Pulse Rate 92 H 04/16/18 10:00 Respiratory Rate 16 04/16/18 06:56 Blood Pressure 133/81 04/16/18 10:00 O2 Sat by Pulse Oximetry (%)
[2018-04-16] MEDS: DOXAZOSIN MESYLATE 4 MG TABLET PO SCH (21:39)
[2018-04-16] MEDS: hydrOXYzine PAMOATE 50 MG CAPSULE (FP) PO PRN (21:40)
[2018-04-16] MEDS: THIAMINE HCL 100 MG TABLET (FP) PO SCH (21:41)
[2018-04-16] MEDS: MELATONIN 5 MG TABLETS PO PRN (21:41)
[2018-04-17] MEDS: IBUPROFEN 400 MG TABLET (FP) PO PRN ×2 (06:11→21:18)
[2018-04-17] MEDS: HYDROCHLOROTHIAZIDE 25 MG TABLET (FP) PO SCH ×2 (10:23→21:17)
[2018-04-17] MEDS: BUPRENORPHINE/NALOXONE 8 MG/2 MG FILM PACKET SL SCH (10:23)
[2018-04-17] MEDS: PRENATAL VITAMINS W/ FOLIC ACID TABLET (FP) PO SCH (10:23)
[2018-04-17] MEDS: ASPIRIN 81 MG CHEWABLE TABLETS PO SCH (10:23)
[2018-04-17] MEDS: NICOTINE 14 MG/24 HOURS TOPICAL PATCH TD SCH (10:23)
[2018-04-17] MEDS: LOSARTAN POTASSIUM 50 MG TABLET (FP) PO SCH (10:23)
[2018-04-17] MEDS: ACETAMINOPHEN 325 MG TABLET (FP) PO PRN (14:42)
[2018-04-17] MEDS: hydrOXYzine PAMOATE 50 MG CAPSULE (FP) PO PRN (21:17)
[2018-04-17] MEDS: MELATONIN 5 MG TABLETS PO PRN (21:17)
[2018-04-17] MEDS: DOXAZOSIN MESYLATE 4 MG TABLET PO SCH (21:17)
[2018-04-17] MEDS: THIAMINE HCL 100 MG TABLET (FP) PO SCH (21:17)
[2018-04-18] MEDS: IBUPROFEN 400 MG TABLET (FP) PO PRN (06:49)
[2018-04-18] MEDS: HYDROCHLOROTHIAZIDE 25 MG TABLET (FP) PO SCH (10:22)
[2018-04-18] MEDS: LOSARTAN POTASSIUM 50 MG TABLET (FP) PO SCH (10:22)
[2018-04-18] MEDS: ASPIRIN 81 MG CHEWABLE TABLETS PO SCH (10:22)
[2018-04-18] MEDS: PRENATAL VITAMINS W/ FOLIC ACID TABLET (FP) PO SCH (10:22)
[2018-04-18] MEDS: NICOTINE 14 MG/24 HOURS TOPICAL PATCH TD SCH (10:23)
[2018-04-18] MEDS: BUPRENORPHINE/NALOXONE 8 MG/2 MG FILM PACKET SL SCH (10:23)
[2018-04-18] MEDS: ACETAMINOPHEN 325 MG TABLET (FP) PO PRN (15:44)
[2018-04-19] MEDS: HYDROCHLOROTHIAZIDE 25 MG TABLET (FP) PO SCH ×3 (00:26→21:20)
[2018-04-19] MEDS: DOXAZOSIN MESYLATE 4 MG TABLET PO SCH ×2 (00:26→21:21)
[2018-04-19] MEDS: THIAMINE HCL 100 MG TABLET (FP) PO SCH ×2 (00:26→21:20)
[2018-04-19] MEDS: IBUPROFEN 400 MG TABLET (FP) PO PRN ×2 (06:44→21:20)
[2018-04-19] MEDS: PRENATAL VITAMINS W/ FOLIC ACID TABLET (FP) PO SCH (10:13)
[2018-04-19] MEDS: ASPIRIN 81 MG CHEWABLE TABLETS PO SCH (10:13)
[2018-04-19] MEDS: LOSARTAN POTASSIUM 50 MG TABLET (FP) PO SCH (10:13)
[2018-04-19] MEDS: NICOTINE 14 MG/24 HOURS TOPICAL PATCH TD SCH (10:14)
[2018-04-19] MEDS: BUPRENORPHINE/NALOXONE 8 MG/2 MG FILM PACKET SL SCH (10:14)
--- NOTE | 2018-04-19 14:05 | PN ---
S Progress Note Note: Patient presents to evaluate swelling of lower legs. Patient denies CP, SOB and dizziness. Ambulatory ad chelly without device. Ext: +1 BLE edema. No redness or swelling noted. Will continue HCTZ, leg elevation and continue to monitor clinically. Vital Signs Temperature 98.4 F 04/19/18 06:34 Pulse Rate 85 04/19/18 10:00 Respiratory Rate 18 04/19/18 06:34 Blood Pressure 128/93 04/19/18 10:00 O2 Sat by Pulse Oximetry (%)
[2018-04-19] MEDS: ACETAMINOPHEN 325 MG TABLET (FP) PO PRN (15:41)
[2018-04-19] MEDS: MELATONIN 5 MG TABLETS PO PRN (21:20)
[2018-04-19] MEDS: hydrOXYzine PAMOATE 50 MG CAPSULE (FP) PO PRN (21:20)
[2018-04-20] MEDS: IBUPROFEN 400 MG TABLET (FP) PO PRN ×2 (06:43→18:35)
[2018-04-20] MEDS: LOSARTAN POTASSIUM 50 MG TABLET (FP) PO SCH (10:15)
[2018-04-20] MEDS: ASPIRIN 81 MG CHEWABLE TABLETS PO SCH (10:15)
[2018-04-20] MEDS: PRENATAL VITAMINS W/ FOLIC ACID TABLET (FP) PO SCH (10:15)
[2018-04-20] MEDS: HYDROCHLOROTHIAZIDE 25 MG TABLET (FP) PO SCH ×2 (10:15→21:37)
[2018-04-20] MEDS: BUPRENORPHINE/NALOXONE 8 MG/2 MG FILM PACKET SL SCH (10:52)
[2018-04-20] MEDS: hydrOXYzine PAMOATE 50 MG CAPSULE (FP) PO PRN ×2 (10:52→21:39)
[2018-04-20] MEDS: THIAMINE HCL 100 MG TABLET (FP) PO SCH (21:37)
[2018-04-20] MEDS: DOXAZOSIN MESYLATE 4 MG TABLET PO SCH (21:38)
[2018-04-20] MEDS: MELATONIN 5 MG TABLETS PO PRN (21:39)
[2018-04-21] MEDS: IBUPROFEN 400 MG TABLET (FP) PO PRN ×2 (07:25→17:40)
[2018-04-21] MEDS: ASPIRIN 81 MG CHEWABLE TABLETS PO SCH (10:26)
[2018-04-21] MEDS: HYDROCHLOROTHIAZIDE 25 MG TABLET (FP) PO SCH ×2 (10:26→21:16)
[2018-04-21] MEDS: LOSARTAN POTASSIUM 50 MG TABLET (FP) PO SCH (10:26)
[2018-04-21] MEDS: BUPRENORPHINE/NALOXONE 8 MG/2 MG FILM PACKET SL SCH (10:26)
[2018-04-21] MEDS: PRENATAL VITAMINS W/ FOLIC ACID TABLET (FP) PO SCH (10:27)
[2018-04-21] MEDS: THIAMINE HCL 100 MG TABLET (FP) PO SCH (21:16)
[2018-04-21] MEDS: DOXAZOSIN MESYLATE 4 MG TABLET PO SCH (21:16)
[2018-04-21] MEDS: hydrOXYzine PAMOATE 50 MG CAPSULE (FP) PO PRN (21:16)
[2018-04-22] MEDS: IBUPROFEN 400 MG TABLET (FP) PO PRN ×2 (06:37→18:51)
[2018-04-22] MEDS: MAGNESIUM HYDROX 2400MG/30ML ORAL SUSPENSION 30 ML CUP PO PRN ×2 (06:37→21:31)
[2018-04-22] MEDS: HYDROCHLOROTHIAZIDE 25 MG TABLET (FP) PO SCH ×2 (10:11→21:28)
[2018-04-22] MEDS: LOSARTAN POTASSIUM 50 MG TABLET (FP) PO SCH (10:11)
[2018-04-22] MEDS: ASPIRIN 81 MG CHEWABLE TABLETS PO SCH (10:11)
[2018-04-22] MEDS: BUPRENORPHINE/NALOXONE 8 MG/2 MG FILM PACKET SL SCH (10:12)
[2018-04-22] MEDS: PRENATAL VITAMINS W/ FOLIC ACID TABLET (FP) PO SCH (10:13)
--- NOTE | 2018-04-22 12:50 | PN ---
S Progress Note Note: Vital Signs Temperature 97.6 F 04/22/18 06:29 Pulse Rate 98 H 04/22/18 06:29 Respiratory Rate 18 04/22/18 06:29 Blood Pressure 119/71 04/22/18 06:29 O2 Sat by Pulse Oximetry (%) patient requested suboxone to be . Patient asymptomatic. Currently stable. Currently on 8mg qd. Dose adjusted to 4mg qd. Patient will be monitor for additional dose adjustments.
[2018-04-22] MEDS: DOXAZOSIN MESYLATE 4 MG TABLET PO SCH (21:28)
[2018-04-22] MEDS: hydrOXYzine PAMOATE 50 MG CAPSULE (FP) PO PRN (21:30)
[2018-04-22] MEDS: MELATONIN 5 MG TABLETS PO PRN (21:31)
[2018-04-22] MEDS: THIAMINE HCL 100 MG TABLET (FP) PO SCH (21:58)
[2018-04-23] MEDS: IBUPROFEN 400 MG TABLET (FP) PO PRN ×2 (05:28→21:46)
[2018-04-23] MEDS ORDERED: BUPRENORPHINE/NALOXONE 2 MG/0.5 MG FILM PACKET SL SCH (10:00)
[2018-04-23] MEDS: PRENATAL VITAMINS W/ FOLIC ACID TABLET (FP) PO SCH (10:06)
[2018-04-23] MEDS: ASPIRIN 81 MG CHEWABLE TABLETS PO SCH (10:06)
[2018-04-23] MEDS: LOSARTAN POTASSIUM 50 MG TABLET (FP) PO SCH (10:08)
[2018-04-23] MEDS: HYDROCHLOROTHIAZIDE 25 MG TABLET (FP) PO SCH ×2 (10:08→21:46)
[2018-04-23] MEDS: THIAMINE HCL 100 MG TABLET (FP) PO SCH (21:46)
[2018-04-23] MEDS: MELATONIN 5 MG TABLETS PO PRN (21:46)
[2018-04-23] MEDS: DOXAZOSIN MESYLATE 4 MG TABLET PO SCH (21:46)
[2018-04-23] MEDS: hydrOXYzine PAMOATE 50 MG CAPSULE (FP) PO PRN (21:46)
[2018-04-24] MEDS: IBUPROFEN 400 MG TABLET (FP) PO PRN ×2 (06:05→21:31)
[2018-04-24] MEDS: HYDROCHLOROTHIAZIDE 25 MG TABLET (FP) PO SCH ×2 (10:20→21:29)
[2018-04-24] MEDS: LOSARTAN POTASSIUM 50 MG TABLET (FP) PO SCH (10:20)
[2018-04-24] MEDS: PRENATAL VITAMINS W/ FOLIC ACID TABLET (FP) PO SCH (10:20)
[2018-04-24] MEDS: ASPIRIN 81 MG CHEWABLE TABLETS PO SCH (10:20)
[2018-04-24] MEDS: BUPRENORPHINE/NALOXONE 2 MG/0.5 MG FILM PACKET SL SCH (11:50)
[2018-04-24] MEDS: MELATONIN 5 MG TABLETS PO PRN (21:29)
[2018-04-24] MEDS: DOXAZOSIN MESYLATE 4 MG TABLET PO SCH (21:29)
[2018-04-24] MEDS: THIAMINE HCL 100 MG TABLET (FP) PO SCH (21:29)
[2018-04-24] MEDS: hydrOXYzine PAMOATE 50 MG CAPSULE (FP) PO PRN (21:31)
[2018-04-25] MEDS: IBUPROFEN 400 MG TABLET (FP) PO PRN ×3 (06:35→21:17)
[2018-04-25] MEDS: ASPIRIN 81 MG CHEWABLE TABLETS PO SCH (10:27)
[2018-04-25] MEDS: LOSARTAN POTASSIUM 50 MG TABLET (FP) PO SCH (10:27)
[2018-04-25] MEDS: HYDROCHLOROTHIAZIDE 25 MG TABLET (FP) PO SCH ×2 (10:27→21:15)
[2018-04-25] MEDS: BUPRENORPHINE/NALOXONE 2 MG/0.5 MG FILM PACKET SL SCH (10:27)
[2018-04-25] MEDS: PRENATAL VITAMINS W/ FOLIC ACID TABLET (FP) PO SCH (10:27)
[2018-04-25] MEDS: THIAMINE HCL 100 MG TABLET (FP) PO SCH (21:15)
[2018-04-25] MEDS: hydrOXYzine PAMOATE 50 MG CAPSULE (FP) PO PRN (21:15)
[2018-04-25] MEDS: DOXAZOSIN MESYLATE 4 MG TABLET PO SCH (21:15)
[2018-04-25] MEDS: MELATONIN 5 MG TABLETS PO PRN (21:16)
[2018-04-26] MEDS: IBUPROFEN 400 MG TABLET (FP) PO PRN ×3 (06:27→21:21)
--- NOTE | 2018-04-26 10:42 | PN ---
[facility] Progress Note Note: PATIENT PRESENTS WITH REQUEST TO TITRATE SUBOXONE DOSE. PATIENT STATES " I AM FEELING BETTER AND EVENTUALLY WANT TO GET OFF SUBOXONE MAINTENANCE TREATMENT". PATIENT DENIES HEADACHE, BODY ACHES, NASAL CONGESTION AND IRRITABILITY. EXAM: PT ALERT AND ORIENTED X 3. IN NAD. AMBULATING WITHIN UNIT IN NAD. WILL DECREASE SUBOXONE TO 2MG DAILY STARTING TODAY AND CONTINUE TO MONITOR CLINICALLY.
[2018-04-26] MEDS: ASPIRIN 81 MG CHEWABLE TABLETS PO SCH (10:58)
[2018-04-26] MEDS: PRENATAL VITAMINS W/ FOLIC ACID TABLET (FP) PO SCH (10:58)
[2018-04-26] MEDS: LOSARTAN POTASSIUM 50 MG TABLET (FP) PO SCH (10:58)
[2018-04-26] MEDS: HYDROCHLOROTHIAZIDE 25 MG TABLET (FP) PO SCH ×2 (10:58→21:20)
[2018-04-26] MEDS: BUPRENORPHINE/NALOXONE 2 MG/0.5 MG FILM PACKET SL SCH (11:47)
[2018-04-26] MEDS: hydrOXYzine PAMOATE 50 MG CAPSULE (FP) PO PRN (21:20)
[2018-04-26] MEDS: MELATONIN 5 MG TABLETS PO PRN (21:20)
[2018-04-26] MEDS: DOXAZOSIN MESYLATE 4 MG TABLET PO SCH (21:20)
[2018-04-26] MEDS: THIAMINE HCL 100 MG TABLET (FP) PO SCH (21:20)
[2018-04-27] MEDS: IBUPROFEN 400 MG TABLET (FP) PO PRN ×3 (06:20→21:36)
[2018-04-27] MEDS: HYDROCHLOROTHIAZIDE 25 MG TABLET (FP) PO SCH ×2 (10:38→21:33)
[2018-04-27] MEDS: LOSARTAN POTASSIUM 50 MG TABLET (FP) PO SCH (10:38)
[2018-04-27] MEDS: PRENATAL VITAMINS W/ FOLIC ACID TABLET (FP) PO SCH (10:38)
[2018-04-27] MEDS: BUPRENORPHINE/NALOXONE 2 MG/0.5 MG FILM PACKET SL SCH (10:39)
[2018-04-27] MEDS: ASPIRIN 81 MG CHEWABLE TABLETS PO SCH (10:39)
[2018-04-27] MEDS: hydrOXYzine PAMOATE 50 MG CAPSULE (FP) PO PRN ×2 (10:40→21:36)
[2018-04-27] MEDS: ACETAMINOPHEN 325 MG TABLET (FP) PO PRN (10:40)
--- NOTE | 2018-04-27 12:51 | PN ---
S Progress Note Note: Patient c/o of right knee pain, denies any injuries or decrease ROM or paresthesia. Vital Signs Temperature 98.1 F 04/27/18 07:09 Pulse Rate 90 04/27/18 07:09 Respiratory Rate 17 04/27/18 07:09 Blood Pressure 135/85 04/27/18 07:09 O2 Sat by Pulse Oximetry (%) patient Aox3 no distress no adventitious breath sounds Full ROM, no crepitus, joint erythema or effusion right knee pain Plan: top bengay QD Ibuprofen PRN ambulate follow up with PMD upon d/c continue to monitor
[2018-04-27] MEDS: METHYL SALICYLATE/MENTHOL OINT 30 GM TUBE TP SCH (15:48)
[2018-04-27] MEDS: THIAMINE HCL 100 MG TABLET (FP) PO SCH (21:33)
[2018-04-27] MEDS: DOXAZOSIN MESYLATE 4 MG TABLET PO SCH (21:35)
[2018-04-27] MEDS: MELATONIN 5 MG TABLETS PO PRN (21:35)
[2018-04-28] MEDS: IBUPROFEN 400 MG TABLET (FP) PO PRN ×3 (05:58→21:19)
[2018-04-28] MEDS: PRENATAL VITAMINS W/ FOLIC ACID TABLET (FP) PO SCH (09:54)
[2018-04-28] MEDS: ASPIRIN 81 MG CHEWABLE TABLETS PO SCH (09:54)
[2018-04-28] MEDS: METHYL SALICYLATE/MENTHOL OINT 30 GM TUBE TP SCH (09:54)
[2018-04-28] MEDS: HYDROCHLOROTHIAZIDE 25 MG TABLET (FP) PO SCH ×2 (09:54→21:19)
[2018-04-28] MEDS: LOSARTAN POTASSIUM 50 MG TABLET (FP) PO SCH (09:54)
[2018-04-28] MEDS: BUPRENORPHINE/NALOXONE 2 MG/0.5 MG FILM PACKET SL SCH (09:55)
[2018-04-28] MEDS: hydrOXYzine PAMOATE 50 MG CAPSULE (FP) PO PRN ×2 (09:56→21:19)
[2018-04-28] MEDS: ACETAMINOPHEN 325 MG TABLET (FP) PO PRN (09:57)
[2018-04-28] MEDS: DOXAZOSIN MESYLATE 4 MG TABLET PO SCH (21:19)
[2018-04-28] MEDS: THIAMINE HCL 100 MG TABLET (FP) PO SCH (21:19)
[2018-04-28] MEDS: MELATONIN 5 MG TABLETS PO PRN (21:20)
[2018-04-29] MEDS: IBUPROFEN 400 MG TABLET (FP) PO PRN ×3 (05:59→21:20)
[2018-04-29] MEDS: PRENATAL VITAMINS W/ FOLIC ACID TABLET (FP) PO SCH (10:02)
[2018-04-29] MEDS: ASPIRIN 81 MG CHEWABLE TABLETS PO SCH (10:02)
[2018-04-29] MEDS: LOSARTAN POTASSIUM 50 MG TABLET (FP) PO SCH (10:02)
[2018-04-29] MEDS: HYDROCHLOROTHIAZIDE 25 MG TABLET (FP) PO SCH ×2 (10:03→21:19)
[2018-04-29] MEDS: BUPRENORPHINE/NALOXONE 2 MG/0.5 MG FILM PACKET SL SCH (10:03)
[2018-04-29] MEDS: METHYL SALICYLATE/MENTHOL OINT 30 GM TUBE TP SCH (10:03)
[2018-04-29] MEDS: hydrOXYzine PAMOATE 50 MG CAPSULE (FP) PO PRN ×2 (10:04→21:19)
--- NOTE | 2018-04-29 12:57 | PN ---
[facility] Progress Note Note: Vital Signs - 24 hr 04/28/18 04/29/18 04/29/18 22:00 00:30 03:30 Temperature Pulse Rate 90 Respiratory 20 18 18 Rate Blood Pressure 142/89 04/29/18 04/29/18 06:50 10:00 Temperature 97.9 F Pulse Rate 95 H 89 Respiratory 18 18 Rate Blood Pressure 137/92 140/90 Patient is a 63 yo male, reports he is schedule to attend [facility] for his after care. Patient has hx of HTN currently controlled on medications. Patient has no physical or cognitive limitations. Patient has been participating in groups while in rehab without any issues. Upon discharge patient may continue to follow up at [facility] without any physical limitations.
[2018-04-29] MEDS: DOXAZOSIN MESYLATE 4 MG TABLET PO SCH (21:19)
[2018-04-29] MEDS: MELATONIN 5 MG TABLETS PO PRN (21:20)
[2018-04-29] MEDS: THIAMINE HCL 100 MG TABLET (FP) PO SCH (21:21)
[2018-04-30] MEDS: IBUPROFEN 400 MG TABLET (FP) PO PRN ×3 (05:44→21:25)
[2018-04-30] MEDS: hydrOXYzine PAMOATE 50 MG CAPSULE (FP) PO PRN ×4 (10:01→23:31)
[2018-04-30] MEDS: HYDROCHLOROTHIAZIDE 25 MG TABLET (FP) PO SCH ×2 (10:02→21:24)
[2018-04-30] MEDS: PRENATAL VITAMINS W/ FOLIC ACID TABLET (FP) PO SCH (10:02)
[2018-04-30] MEDS: LOSARTAN POTASSIUM 50 MG TABLET (FP) PO SCH (10:02)
[2018-04-30] MEDS: ASPIRIN 81 MG CHEWABLE TABLETS PO SCH (10:03)
[2018-04-30] MEDS: ACETAMINOPHEN 325 MG TABLET (FP) PO PRN (10:04)
[2018-04-30] MEDS: METHYL SALICYLATE/MENTHOL OINT 30 GM TUBE TP SCH (10:08)
[2018-04-30] MEDS: BUPRENORPHINE/NALOXONE 2 MG/0.5 MG FILM PACKET SL SCH (12:12)
--- NOTE | 2018-04-30 13:33 | PN ---
[facility] Progress Note Note: PATIENT C/O TREMORS, SWEATING AND INSOMNIA AFTER DECREASING DOSE OF TO SUBOXONE 2MG. Vital Signs Temperature 98.2 F 04/30/18 07:02 Pulse Rate 99 H 04/30/18 10:00 Respiratory Rate 04/30/18 10:00 Blood Pressure 108/74 04/30/18 10:00 O2 Sat by Pulse Oximetry (%) OBJ: GENERAL: ALERT AND ORIENTED. MILD ANXIETY NOTED. SKIN: WARM AND DRY EXT: MILD TREMORS,NO EDEMA. A/P WITHDRAWAL SYNDROME WILL INCREASE SUBOXONE TO 4MG DAILY ENCOURAGE ORAL FLUIDS CONTINUE TO MONITOR CLINICALLY
[2018-04-30] MEDS: DOXAZOSIN MESYLATE 4 MG TABLET PO SCH (21:24)
[2018-04-30] MEDS: THIAMINE HCL 100 MG TABLET (FP) PO SCH (21:24)
[2018-04-30] MEDS: MELATONIN 5 MG TABLETS PO PRN (21:25)
[2018-05-01] MEDS: IBUPROFEN 400 MG TABLET (FP) PO PRN (06:31)
[2018-05-01] MEDS: ASPIRIN 81 MG CHEWABLE TABLETS PO SCH (10:17)
[2018-05-01] MEDS: LOSARTAN POTASSIUM 50 MG TABLET (FP) PO SCH (10:17)
[2018-05-01] MEDS: METHYL SALICYLATE/MENTHOL OINT 30 GM TUBE TP SCH (10:18)
[2018-05-01] MEDS: PRENATAL VITAMINS W/ FOLIC ACID TABLET (FP) PO SCH (10:18)
[2018-05-01] MEDS: HYDROCHLOROTHIAZIDE 25 MG TABLET (FP) PO SCH ×2 (10:18→21:20)
[2018-05-01] MEDS: BUPRENORPHINE/NALOXONE 2 MG/0.5 MG FILM PACKET SL SCH (10:19)
[2018-05-01] MEDS: hydrOXYzine PAMOATE 50 MG CAPSULE (FP) PO PRN ×3 (10:20→21:20)
[2018-05-01] MEDS: MELATONIN 5 MG TABLETS PO PRN (21:20)
[2018-05-01] MEDS: THIAMINE HCL 100 MG TABLET (FP) PO SCH (21:20)
[2018-05-01] MEDS: DOXAZOSIN MESYLATE 4 MG TABLET PO SCH (21:20)
[2018-05-02] MEDS: IBUPROFEN 400 MG TABLET (FP) PO PRN ×3 (06:30→21:24)
[2018-05-02 06:32] VITALS: TEMP 98.7
[2018-05-02] MEDS: PRENATAL VITAMINS W/ FOLIC ACID TABLET (FP) PO SCH (10:11)
[2018-05-02] MEDS: HYDROCHLOROTHIAZIDE 25 MG TABLET (FP) PO SCH ×2 (10:11→21:24)
[2018-05-02] MEDS: ASPIRIN 81 MG CHEWABLE TABLETS PO SCH (10:11)
[2018-05-02] MEDS: METHYL SALICYLATE/MENTHOL OINT 30 GM TUBE TP SCH (10:11)
[2018-05-02] MEDS: LOSARTAN POTASSIUM 50 MG TABLET (FP) PO SCH (10:11)
[2018-05-02] MEDS: BUPRENORPHINE/NALOXONE 2 MG/0.5 MG FILM PACKET SL SCH (10:12)
[2018-05-02] MEDS: hydrOXYzine PAMOATE 50 MG CAPSULE (FP) PO PRN ×3 (10:13→21:24)
--- NOTE | 2018-05-02 15:18 | PN ---
Psychiatric Progress Note Vital Signs: Vital Signs Period Temp Pulse Resp BP Sys/Castaneda Pulse Ox Last 24 Hr 98.7 F 85-90 16-18 110-127/72-86 Date of Session: 05/02/18 Chief Complaint:: Discharge Note HPI: Patient addressing alcohol Dependence comorbid with opioid Dependence on Agonist Therapy and Nicotine Dependence ROS: HTN Current Medications: Active Medications Generic Name Dose Route Start Last Admin Trade Name Freq PRN Reason Stop Dose Admin Acetaminophen 650 mg 04/11/18 12:55 04/30/18 10:04 Tylenol - PO 650 mg Q4H PRN Administration FEVER Al Hydroxide/Mg Hydroxide 30 ml 04/11/18 12:55 04/23/18 21:47 Mylanta Oral Suspension - PO 30 ml Q6H PRN Administration DYSPEPSIA Aspirin 81 mg 04/12/18 10:00 05/02/18 10:11 Asa - PO 81 mg DAILY VIDAL Administration Buprenorphine/Naloxone 2 each 05/03/18 08:00 Suboxone 2mg/0.5mg Sl Film - SL 05/03/18 08:01 ONCE ONE Doxazosin Mesylate 4 mg 04/11/18 22:00 05/01/18 21:20 Cardura - PO 4 mg HS VIDAL Administration Eucalyptus/Menthol/Phenol/Sorbitol 1 each 04/11/18 12:55 Cepastat Lozenge - MM Q4H PRN SORE THROAT Guaifenesin 10 ml 04/11/18 12:55 Robitussin Dm - PO Q6H PRN COUGH Hydrochlorothiazide 25 mg 04/12/18 22:00 05/02/18 10:11 Hctz - PO 25 mg BID VIDAL Administration Hydroxyzine Pamoate 50 mg 04/11/18 12:55 05/02/18 14:19 Vistaril - PO 50 mg Q4H PRN Administration AGITATION Ibuprofen 400 mg 04/11/18 12:55 05/02/18 14:18 Motrin - PO 400 mg Q6H PRN Administration Pain Level 4-6 Loperamide HCl 4 mg 04/11/18 12:55 Imodium - PO Q6H PRN DIARRHEA Losartan Potassium 100 mg 04/12/18 10:00 05/02/18 10:11 Cozaar - PO 100 mg DAILY VIDAL Administration Magnesium Hydroxide 30 ml 04/21/18 11:30 04/22/18 21:31 Milk Of Magnesia - PO 30 ml Q8H PRN Administration INDIGESTION Melatonin 5 mg 04/11/18 22:00 05/01/18 21:20 Melatonin PO 5 mg HS PRN Administration INSOMNIA Methyl Salicylate 1 applic 04/27/18 13:45 05/02/18 10:11 Mike-Partida - TP Not Given DAILY VIDAL Nicotine Polacrilex 2 mg 04/11/18 12:55 Nicorette Gum - BUC Q2H PRN NICOTINE REPLACEMENT RX Multivit/Folic Acid/Iron 1 tab 04/12/18 10:00 05/02/18 10:11 Vitamins (Sjr) - PO 1 tab DAILY VIDAL Administration Pseudoephedrine/Triprolidine 1 combo 04/11/18 12:55 Actifed - PO TID PRN NASAL CONGESTION Thiamine HCl 100 mg 04/11/18 22:00 05/01/18 21:20 Vitamin B1 - PO 100 mg HS VIDAL Administration Current Side Effect: No Lab tests ordered: Yes Lab tests reviewed: Yes Provider note:: Patient will complete this program on 05/03/18. He has met his treatment goals and will continue to address his issues in outpatient treatment at [facility]. Told account underwriter that from his participation in this program, he has learned the importance of having structure in his life and of making meetings. He is stable for discharge on 05/03/18 Total face to face time:: 35 Mental Status Exam - Mental Status Exam Alert and Oriented to: Time, Place, Person Cognitive Function: Fair Patient Appearance: Well Groomed Mood: Hopeful, Euthymic Affect: Appropriate Patient Behavior: Cooperative Speech Pattern: Clear Voice Loudness: Normal Thought Process: Intact, Goal Oriented Thought Disorder: Not Present Hallucinations: Denies Suicidal Ideation: Denies Homicidal Ideation: Denies Insight/Judgement: Fair Sleep: Fair Appetite: Good Muscle strength/Tone: Normal Gait/Station: Normal Psychiatric Treatment Plan - Problem List (1) Alcohol dependence Current Visit: Yes (2) Opioid dependence on agonist therapy Current Visit: Yes (3) Nicotine dependence Current Visit: Yes (4) Right knee pain Current Visit: Yes (5) HTN (hypertension) Current Visit: Yes Qualifiers: Hypertension type: essential hypertension Qualified Code(s): I10 - Essential (primary) hypertension Initial treatment plan: Patient will be discharged tomorrow and referred to [facility] for outpatient treatment
[2018-05-02] MEDS: THIAMINE HCL 100 MG TABLET (FP) PO SCH (21:24)
[2018-05-02] MEDS: DOXAZOSIN MESYLATE 4 MG TABLET PO SCH (21:24)
[2018-05-02] MEDS: MELATONIN 5 MG TABLETS PO PRN (21:25)
[2018-05-03] MEDS: IBUPROFEN 400 MG TABLET (FP) PO PRN (06:05)
[2018-05-03 07:18] VITALS: BP 129/74; PULSE 78
[2018-05-03] MEDS ORDERED: BUPRENORPHINE/NALOXONE 2 MG/0.5 MG FILM PACKET SL ONE (08:00)
[2018-05-03] MEDS: hydrOXYzine PAMOATE 50 MG CAPSULE (FP) PO PRN (08:37)
[2018-05-03] MEDS: PRENATAL VITAMINS W/ FOLIC ACID TABLET (FP) PO SCH (09:52)
[2018-05-03] MEDS: LOSARTAN POTASSIUM 50 MG TABLET (FP) PO SCH (09:53)
[2018-05-03] MEDS: METHYL SALICYLATE/MENTHOL OINT 30 GM TUBE TP SCH (09:53)
[2018-05-03] MEDS: ASPIRIN 81 MG CHEWABLE TABLETS PO SCH (09:53)
[2018-05-03] MEDS: HYDROCHLOROTHIAZIDE 25 MG TABLET (FP) PO SCH (09:53)
== END 2018-05-03 08:55 | disposition home or self-care (01) | DRG 772 ==
LOC: YASAS 13:21 → Y5N 13:22
PROVIDERS: ADMIT Psychiatry & Neurology Psychiatry; ATTEND Psychiatry & Neurology Psychiatry
PROC: HZ42ZZZ Group Counseling for Substance Abuse Treatment, Cognitive-Behavioral (ICD-10-PCS; principal; 2018-04-11)
DX: F10.20 Alcohol dependence, uncomplicated (principal); F11.23 Opioid dependence with withdrawal; F17.210 Nicotine dependence, cigarettes, uncomplicated; I10 Essential (primary) hypertension; M25.561 Pain in right knee; R60.0 Localized edema
CPT/HCPCS: J0735

== ENCOUNTER 2018-07-06 12:55 | Inpatient (IN) | payer OTHER ==
[2018-07-06] MEDS ORDERED: guaiFENesin/D-METHORPHAN HB 10 ML UNIT-DOSE CUPS PO PRN (14:51)
[2018-07-06] MEDS ORDERED: MAG HYDROX/AL HYDROX/SIMETH 30 ML UNIT-DOSE CUP PO PRN (14:51)
[2018-07-06] MEDS ORDERED: P-EPHED 60MG/TRIPROLIDI 2.5MG TABLET PO PRN (14:51)
[2018-07-06] MEDS ORDERED: MAGNESIUM CITRATE 300 ML BOTTLE PO PRN (14:51)
[2018-07-06] MEDS ORDERED: LOPERAMIDE HCL 2 MG CAPSULE PO PRN (14:51)
[2018-07-06] MEDS ORDERED: MENTHOL/PHENOL 1 EACH UD MM PRN (14:51)
[2018-07-06] MEDS: IBUPROFEN 400 MG TABLET (FP) PO PRN ×2 (15:46→21:55)
[2018-07-06] MEDS: FERROUS SO4 325 MG TABLET (FP) PO SCH (15:49)
--- NOTE | 2018-07-06 17:53 | PN ---
S Progress Note Note: Vital Signs Temperature 98.1 F 07/06/18 14:12 Pulse Rate 81 07/06/18 14:12 Respiratory Rate 18 07/06/18 14:12 Blood Pressure 132/97 07/06/18 14:12 O2 Sat by Pulse Oximetry (%) Patient on suboxone maintenance 8mg qd. Order place. continue to monitor
[2018-07-06] MEDS: DOXAZOSIN MESYLATE 4 MG TABLET PO SCH (21:29)
[2018-07-06] MEDS: ATORVASTATIN CA 40 MG TABLET (FP) PO SCH (21:29)
[2018-07-06] MEDS: THIAMINE HCL 100 MG TABLET (FP) PO SCH (21:29)
[2018-07-06] MEDS: MELATONIN 5 MG TABLETS PO PRN (21:29)
[2018-07-07] MEDS: IBUPROFEN 400 MG TABLET (FP) PO PRN ×3 (06:39→21:24)
--- NOTE | 2018-07-07 09:39 | HP ---
Psychiatrist Admission - Data Date of interview: 07/07/18 Admission source: [facility] Identifying data: Patient is a 63 year old single male, father of five, unemployed, homeless, and supported by HRA (welfare). This is patient's second admission to rehab at [facility]. Pt. admitted to rehab for alcohol and opiate depedence. Medical History: hypertension, hypercholesterolemia Psychiatric History: Patient's first psychiatric contact was at [facility] in [place] for a psychosocial evaluation for housing. Pt. only attended one appointment. No additional psychiatric services provided. Pt. denies h/o psychiatric hospitalization and suicide attempt. Physical/Sexual Abuse/Trauma History: denies. Vital Signs: Vital Signs - 24 hr 07/06/18 07/07/18 07/07/18 14:12 00:30 06:30 Temperature 98.1 F Pulse Rate 81 Respiratory 18 20 18 Rate Blood Pressure 132/97 07/07/18 06:42 Temperature 98.9 F Pulse Rate 84 Respiratory 18 Rate Blood Pressure 120/96 Allergies/Adverse Reactions: Allergies Allergy/AdvReac Type Severity Reaction Status Date / Time Penicillins Allergy Severe Verified 07/06/18 14:08 lisinopril AdvReac Cough Verified 07/06/18 14:08 Date of last physical exam: 07/02/18 Concur with the findings of this exam: Yes - Substance Abuse/Tx History Hx Alcohol Use: Yes (1 pint of smirnoff daily ) Hx Substance Use: Yes (Heroin- 1-2 bags per week) Substance Use Type: Heroin Hx Substance Use Treatment: Yes ([facility] rehab on 04/12/19) Mental Status Exam - Mental Status Exam Alert and Oriented to: Time, Place, Person Cognitive Function: Good Patient Appearance: Well Groomed Mood: Hopeful Affect: Appropriate, Mood Congruent Patient Behavior: Appropriate, Cooperative Speech Pattern: Clear, Appropriate Voice Loudness: Normal Thought Process: Intact, Goal Oriented Hallucinations: Denies Suicidal Ideation: Denies Homicidal Ideation: Denies Insight/Judgement: Poor Sleep: Fair Appetite: Fair Muscle strength/Tone: Normal Gait/Station: Normal Psychiatric Findings - Problem List ([place] 1, 2,3) (1) Alcohol dependence Current Visit: Yes Status: Acute (2) Opioid dependence on agonist therapy Current Visit: Yes Status: Chronic (3) Encounter for monitoring Suboxone maintenance therapy Current Visit: Yes Status: Chronic Comment: stable dosing [facility] (4) Nicotine dependence Current Visit: Yes Status: Chronic Qualifiers: Nicotine product type: cigarettes Substance use status: in withdrawal Qualified Code(s): F17.213 - Nicotine dependence, cigarettes, with withdrawal - Initial Treatment Plan Initial Treatment Plan: Psychoeducation provided. Detoxification in progress. Observation.
[2018-07-07] MEDS ORDERED: BUPRENORPHINE HCL 8 MG TAB.SUBL SL SCH (10:00)
[2018-07-07] MEDS: BUPRENORPHINE/NALOXONE 8 MG/2 MG FILM PACKET SL SCH (10:07)
[2018-07-07] MEDS: PRENATAL VITAMINS W/ FOLIC ACID TABLET (FP) PO SCH (10:07)
[2018-07-07] MEDS: LOSARTAN POTASSIUM 50 MG TABLET (FP) PO SCH (10:07)
[2018-07-07] MEDS: FERROUS SO4 325 MG TABLET (FP) PO SCH (10:07)
[2018-07-07] MEDS: MAGNESIUM OXIDE 400 MG TABLET (FP) PO SCH (10:09)
[2018-07-07] MEDS: hydrOXYzine PAMOATE 50 MG CAPSULE (FP) PO PRN ×3 (10:09→21:24)
[2018-07-07] MEDS: ACETAMINOPHEN 325 MG TABLET (FP) PO PRN ×2 (10:09→23:50)
[2018-07-07] MEDS: THIAMINE HCL 100 MG TABLET (FP) PO SCH (21:24)
[2018-07-07] MEDS: ATORVASTATIN CA 40 MG TABLET (FP) PO SCH (21:24)
[2018-07-07] MEDS: MELATONIN 5 MG TABLETS PO PRN (21:25)
[2018-07-07] MEDS: DOXAZOSIN MESYLATE 4 MG TABLET PO SCH (21:25)
[2018-07-08] MEDS: hydrOXYzine PAMOATE 50 MG CAPSULE (FP) PO PRN ×4 (06:36→21:28)
[2018-07-08] MEDS: IBUPROFEN 400 MG TABLET (FP) PO PRN ×3 (06:36→21:28)
[2018-07-08] MEDS: FERROUS SO4 325 MG TABLET (FP) PO SCH (10:10)
[2018-07-08] MEDS: PRENATAL VITAMINS W/ FOLIC ACID TABLET (FP) PO SCH (10:10)
[2018-07-08] MEDS: MAGNESIUM OXIDE 400 MG TABLET (FP) PO SCH (10:10)
[2018-07-08] MEDS: LOSARTAN POTASSIUM 50 MG TABLET (FP) PO SCH (10:10)
[2018-07-08] MEDS: BUPRENORPHINE/NALOXONE 8 MG/2 MG FILM PACKET SL SCH (10:10)
[2018-07-08] MEDS: ACETAMINOPHEN 325 MG TABLET (FP) PO PRN ×2 (10:11→17:14)
[2018-07-08] MEDS: ATORVASTATIN CA 40 MG TABLET (FP) PO SCH (21:26)
[2018-07-08] MEDS: DOXAZOSIN MESYLATE 4 MG TABLET PO SCH (21:26)
[2018-07-08] MEDS: THIAMINE HCL 100 MG TABLET (FP) PO SCH (21:26)
[2018-07-08] MEDS: MELATONIN 5 MG TABLETS PO PRN (21:29)
[2018-07-08] MEDS ORDERED: cloNIDine HCL 0.1 MG TABLET PO ONE (23:45)
[2018-07-09] MEDS: IBUPROFEN 400 MG TABLET (FP) PO PRN ×3 (06:44→21:22)
[2018-07-09] MEDS: hydrOXYzine PAMOATE 50 MG CAPSULE (FP) PO PRN ×4 (06:44→21:21)
--- NOTE | 2018-07-09 07:19 | PN ---
[facility] Progress Note Note: called for elevated b/p pt not on all home meds' hctz 12.5 mg po daily asa 81 mg daily amlodipine 10 mg daily noted in home meds meds ordered cont to monitor clinically Vital Signs (72 hours) 07/06/18 07/07/18 07/07/18 14:12 00:30 06:30 Temperature 98.1 F Pulse Rate 81 Respiratory 18 20 18 Rate Blood Pressure 132/97 07/07/18 07/07/18 07/08/18 06:42 10:00 00:30 Temperature 98.9 F Pulse Rate 84 88 Respiratory 18 18 Rate Blood Pressure 120/96 147/95 07/08/18 07/08/18 07/08/18 03:30 07:12 21:00 Temperature 98.2 F Pulse Rate 80 Respiratory 18 18 Rate Blood Pressure 151/91 188/120 07/08/18 07/09/18 07/09/18 23:42 00:30 03:30 Temperature Pulse Rate Respiratory 18 18 Rate Blood Pressure 155/107 07/09/18 07:09 Temperature 98.5 F Pulse Rate 70 Respiratory 18 Rate Blood Pressure 157/95
[2018-07-09] MEDS ORDERED: ASPIRIN 81 MG CHEWABLE TABLETS PO SCH (10:00)
[2018-07-09] MEDS ORDERED: HYDROCHLOROTHIAZIDE 12.5 MG CAPSULE (FP) PO SCH (10:00)
[2018-07-09] MEDS: HYDROCHLOROTHIAZIDE 12.5 MG CAPSULE (FP) PO SCH (10:08)
[2018-07-09] MEDS: PRENATAL VITAMINS W/ FOLIC ACID TABLET (FP) PO SCH (10:09)
[2018-07-09] MEDS: ASPIRIN 81 MG CHEWABLE TABLETS PO SCH (10:09)
[2018-07-09] MEDS: MAGNESIUM OXIDE 400 MG TABLET (FP) PO SCH (10:09)
[2018-07-09] MEDS: amLODIPine BESYLATE 10 MG TABLET (FP) PO SCH (10:09)
[2018-07-09] MEDS: FERROUS SO4 325 MG TABLET (FP) PO SCH (10:09)
[2018-07-09] MEDS: LOSARTAN POTASSIUM 50 MG TABLET (FP) PO SCH (10:09)
[2018-07-09] MEDS: BUPRENORPHINE/NALOXONE 8 MG/2 MG FILM PACKET SL SCH (10:09)
[2018-07-09] MEDS: ATORVASTATIN CA 40 MG TABLET (FP) PO SCH (21:21)
[2018-07-09] MEDS: THIAMINE HCL 100 MG TABLET (FP) PO SCH (21:21)
[2018-07-09] MEDS: MELATONIN 5 MG TABLETS PO PRN (21:21)
[2018-07-09] MEDS: DOXAZOSIN MESYLATE 4 MG TABLET PO SCH (21:21)
[2018-07-10] MEDS: hydrOXYzine PAMOATE 50 MG CAPSULE (FP) PO PRN ×4 (06:35→21:22)
[2018-07-10] MEDS: IBUPROFEN 400 MG TABLET (FP) PO PRN ×3 (06:35→21:22)
[2018-07-10] MEDS: HYDROCHLOROTHIAZIDE 12.5 MG CAPSULE (FP) PO SCH (10:29)
[2018-07-10] MEDS: amLODIPine BESYLATE 10 MG TABLET (FP) PO SCH (10:29)
[2018-07-10] MEDS: LOSARTAN POTASSIUM 50 MG TABLET (FP) PO SCH (10:29)
[2018-07-10] MEDS: MAGNESIUM OXIDE 400 MG TABLET (FP) PO SCH (10:29)
[2018-07-10] MEDS: PRENATAL VITAMINS W/ FOLIC ACID TABLET (FP) PO SCH (10:29)
[2018-07-10] MEDS: FERROUS SO4 325 MG TABLET (FP) PO SCH (10:29)
[2018-07-10] MEDS: ASPIRIN 81 MG CHEWABLE TABLETS PO SCH (10:29)
[2018-07-10] MEDS: BUPRENORPHINE/NALOXONE 8 MG/2 MG FILM PACKET SL SCH (10:29)
[2018-07-10] MEDS: ACETAMINOPHEN 325 MG TABLET (FP) PO PRN (10:31)
[2018-07-10] MEDS: MELATONIN 5 MG TABLETS PO PRN (21:22)
[2018-07-10] MEDS: DOXAZOSIN MESYLATE 4 MG TABLET PO SCH (21:22)
[2018-07-10] MEDS: ATORVASTATIN CA 40 MG TABLET (FP) PO SCH (21:22)
[2018-07-10] MEDS: THIAMINE HCL 100 MG TABLET (FP) PO SCH (21:22)
[2018-07-11] MEDS: hydrOXYzine PAMOATE 50 MG CAPSULE (FP) PO PRN ×3 (06:45→21:38)
[2018-07-11] MEDS: IBUPROFEN 400 MG TABLET (FP) PO PRN ×2 (06:45→17:32)
[2018-07-11] MEDS: LOSARTAN POTASSIUM 50 MG TABLET (FP) PO SCH (10:08)
[2018-07-11] MEDS: PRENATAL VITAMINS W/ FOLIC ACID TABLET (FP) PO SCH (10:08)
[2018-07-11] MEDS: HYDROCHLOROTHIAZIDE 12.5 MG CAPSULE (FP) PO SCH (10:08)
[2018-07-11] MEDS: FERROUS SO4 325 MG TABLET (FP) PO SCH (10:08)
[2018-07-11] MEDS: MAGNESIUM OXIDE 400 MG TABLET (FP) PO SCH (10:08)
[2018-07-11] MEDS: amLODIPine BESYLATE 10 MG TABLET (FP) PO SCH (10:08)
[2018-07-11] MEDS: ASPIRIN 81 MG CHEWABLE TABLETS PO SCH (10:09)
[2018-07-11] MEDS: BUPRENORPHINE/NALOXONE 8 MG/2 MG FILM PACKET SL SCH (10:09)
[2018-07-11] MEDS: ACETAMINOPHEN 325 MG TABLET (FP) PO PRN ×2 (10:10→21:39)
[2018-07-11] MEDS: THIAMINE HCL 100 MG TABLET (FP) PO SCH (21:38)
[2018-07-11] MEDS: MELATONIN 5 MG TABLETS PO PRN (21:38)
[2018-07-11] MEDS: ATORVASTATIN CA 40 MG TABLET (FP) PO SCH (21:39)
[2018-07-12] MEDS: DOXAZOSIN MESYLATE 4 MG TABLET PO SCH ×2 (00:09→21:41)
[2018-07-12] MEDS: IBUPROFEN 400 MG TABLET (FP) PO PRN ×2 (06:32→16:06)
[2018-07-12] MEDS: hydrOXYzine PAMOATE 50 MG CAPSULE (FP) PO PRN ×3 (06:32→21:43)
[2018-07-12] MEDS: HYDROCHLOROTHIAZIDE 12.5 MG CAPSULE (FP) PO SCH (10:29)
[2018-07-12] MEDS: amLODIPine BESYLATE 10 MG TABLET (FP) PO SCH (10:29)
[2018-07-12] MEDS: PRENATAL VITAMINS W/ FOLIC ACID TABLET (FP) PO SCH (10:29)
[2018-07-12] MEDS: MAGNESIUM OXIDE 400 MG TABLET (FP) PO SCH (10:29)
[2018-07-12] MEDS: ASPIRIN 81 MG CHEWABLE TABLETS PO SCH (10:29)
[2018-07-12] MEDS: LOSARTAN POTASSIUM 50 MG TABLET (FP) PO SCH (10:29)
[2018-07-12] MEDS: FERROUS SO4 325 MG TABLET (FP) PO SCH (10:29)
[2018-07-12] MEDS: BUPRENORPHINE/NALOXONE 8 MG/2 MG FILM PACKET SL SCH (10:30)
[2018-07-12] MEDS: ACETAMINOPHEN 325 MG TABLET (FP) PO PRN ×2 (10:31→21:43)
--- NOTE | 2018-07-12 12:32 | PN ---
S Progress Note Note: Vital Signs Temperature 98.2 F 07/12/18 06:49 Pulse Rate 83 07/12/18 06:49 Respiratory Rate 18 07/12/18 06:49 Blood Pressure 134/81 07/12/18 06:49 O2 Sat by Pulse Oximetry (%) c/o of bilateral knee pain TP bengay qd PRN ambulate leg elevation continue to monitor
[2018-07-12] MEDS: METHYL SALICYLATE/MENTHOL OINT 30 GM TUBE TP SCH (14:54)
[2018-07-12] MEDS: THIAMINE HCL 100 MG TABLET (FP) PO SCH (21:41)
[2018-07-12] MEDS: ATORVASTATIN CA 40 MG TABLET (FP) PO SCH (21:41)
[2018-07-12] MEDS: MELATONIN 5 MG TABLETS PO PRN (21:44)
[2018-07-13] MEDS: IBUPROFEN 400 MG TABLET (FP) PO PRN ×3 (06:04→21:29)
[2018-07-13] MEDS: hydrOXYzine PAMOATE 50 MG CAPSULE (FP) PO PRN ×4 (06:04→21:29)
[2018-07-13] MEDS: MAGNESIUM OXIDE 400 MG TABLET (FP) PO SCH (10:14)
[2018-07-13] MEDS: FERROUS SO4 325 MG TABLET (FP) PO SCH (10:14)
[2018-07-13] MEDS: amLODIPine BESYLATE 10 MG TABLET (FP) PO SCH (10:14)
[2018-07-13] MEDS: HYDROCHLOROTHIAZIDE 12.5 MG CAPSULE (FP) PO SCH (10:14)
[2018-07-13] MEDS: PRENATAL VITAMINS W/ FOLIC ACID TABLET (FP) PO SCH (10:14)
[2018-07-13] MEDS: ASPIRIN 81 MG CHEWABLE TABLETS PO SCH (10:14)
[2018-07-13] MEDS: BUPRENORPHINE/NALOXONE 8 MG/2 MG FILM PACKET SL SCH (10:14)
[2018-07-13] MEDS: LOSARTAN POTASSIUM 50 MG TABLET (FP) PO SCH (10:14)
[2018-07-13] MEDS: METHYL SALICYLATE/MENTHOL OINT 30 GM TUBE TP SCH (10:14)
[2018-07-13] MEDS: ACETAMINOPHEN 325 MG TABLET (FP) PO PRN (10:15)
--- NOTE | 2018-07-13 12:41 | PN ---
[facility] Progress Note Note: Vital Signs Temperature 98.8 F 07/13/18 06:58 Pulse Rate 102 H 07/13/18 06:58 Respiratory Rate 18 07/13/18 06:58 Blood Pressure 134/81 07/13/18 06:58 O2 Sat by Pulse Oximetry (%) Pt currently over weight on Ensure po BID d/c ensure continue to monitor
[2018-07-13] MEDS: ATORVASTATIN CA 40 MG TABLET (FP) PO SCH (21:26)
[2018-07-13] MEDS: THIAMINE HCL 100 MG TABLET (FP) PO SCH (21:26)
[2018-07-13] MEDS: DOXAZOSIN MESYLATE 4 MG TABLET PO SCH (21:26)
[2018-07-13] MEDS: MELATONIN 5 MG TABLETS PO PRN (21:27)
[2018-07-13] MEDS: MAGNESIUM HYDROX 2400MG/30ML ORAL SUSPENSION 30 ML CUP PO PRN (21:30)
[2018-07-14] MEDS: hydrOXYzine PAMOATE 50 MG CAPSULE (FP) PO PRN ×3 (06:19→21:27)
[2018-07-14] MEDS: IBUPROFEN 400 MG TABLET (FP) PO PRN ×3 (06:19→21:28)
[2018-07-14] MEDS: ASPIRIN 81 MG CHEWABLE TABLETS PO SCH (10:08)
[2018-07-14] MEDS: amLODIPine BESYLATE 10 MG TABLET (FP) PO SCH (10:08)
[2018-07-14] MEDS: BUPRENORPHINE/NALOXONE 8 MG/2 MG FILM PACKET SL SCH (10:08)
[2018-07-14] MEDS: HYDROCHLOROTHIAZIDE 12.5 MG CAPSULE (FP) PO SCH (10:08)
[2018-07-14] MEDS: MAGNESIUM OXIDE 400 MG TABLET (FP) PO SCH (10:08)
[2018-07-14] MEDS: LOSARTAN POTASSIUM 50 MG TABLET (FP) PO SCH (10:08)
[2018-07-14] MEDS: PRENATAL VITAMINS W/ FOLIC ACID TABLET (FP) PO SCH (10:08)
[2018-07-14] MEDS: FERROUS SO4 325 MG TABLET (FP) PO SCH (10:08)
[2018-07-14] MEDS: METHYL SALICYLATE/MENTHOL OINT 30 GM TUBE TP SCH (10:09)
[2018-07-14] MEDS: ATORVASTATIN CA 40 MG TABLET (FP) PO SCH (21:27)
[2018-07-14] MEDS: THIAMINE HCL 100 MG TABLET (FP) PO SCH (21:27)
[2018-07-14] MEDS: DOXAZOSIN MESYLATE 4 MG TABLET PO SCH (21:27)
[2018-07-14] MEDS: MELATONIN 5 MG TABLETS PO PRN (21:28)
[2018-07-15] MEDS: hydrOXYzine PAMOATE 50 MG CAPSULE (FP) PO PRN ×3 (06:22→21:26)
[2018-07-15] MEDS: IBUPROFEN 400 MG TABLET (FP) PO PRN ×3 (06:22→21:26)
[2018-07-15] MEDS: HYDROCHLOROTHIAZIDE 12.5 MG CAPSULE (FP) PO SCH (10:20)
[2018-07-15] MEDS: MAGNESIUM OXIDE 400 MG TABLET (FP) PO SCH (10:20)
[2018-07-15] MEDS: LOSARTAN POTASSIUM 50 MG TABLET (FP) PO SCH (10:20)
[2018-07-15] MEDS: amLODIPine BESYLATE 10 MG TABLET (FP) PO SCH (10:20)
[2018-07-15] MEDS: FERROUS SO4 325 MG TABLET (FP) PO SCH (10:20)
[2018-07-15] MEDS: ASPIRIN 81 MG CHEWABLE TABLETS PO SCH (10:20)
[2018-07-15] MEDS: PRENATAL VITAMINS W/ FOLIC ACID TABLET (FP) PO SCH (10:21)
[2018-07-15] MEDS: ACETAMINOPHEN 325 MG TABLET (FP) PO PRN (10:22)
[2018-07-15] MEDS: BUPRENORPHINE/NALOXONE 8 MG/2 MG FILM PACKET SL SCH (10:23)
[2018-07-15] MEDS: METHYL SALICYLATE/MENTHOL OINT 30 GM TUBE TP SCH (10:23)
[2018-07-15] MEDS: DOXAZOSIN MESYLATE 4 MG TABLET PO SCH (21:24)
[2018-07-15] MEDS: ATORVASTATIN CA 40 MG TABLET (FP) PO SCH (21:24)
[2018-07-15] MEDS: THIAMINE HCL 100 MG TABLET (FP) PO SCH (21:24)
[2018-07-15] MEDS: MELATONIN 5 MG TABLETS PO PRN (21:26)
[2018-07-16] MEDS: hydrOXYzine PAMOATE 50 MG CAPSULE (FP) PO PRN ×3 (06:10→21:30)
[2018-07-16] MEDS: IBUPROFEN 400 MG TABLET (FP) PO PRN ×2 (06:11→21:31)
[2018-07-16] MEDS: FERROUS SO4 325 MG TABLET (FP) PO SCH (10:01)
[2018-07-16] MEDS: amLODIPine BESYLATE 10 MG TABLET (FP) PO SCH (10:01)
[2018-07-16] MEDS: HYDROCHLOROTHIAZIDE 12.5 MG CAPSULE (FP) PO SCH (10:01)
[2018-07-16] MEDS: MAGNESIUM OXIDE 400 MG TABLET (FP) PO SCH (10:01)
[2018-07-16] MEDS: BUPRENORPHINE/NALOXONE 8 MG/2 MG FILM PACKET SL SCH (10:01)
[2018-07-16] MEDS: LOSARTAN POTASSIUM 50 MG TABLET (FP) PO SCH (10:02)
[2018-07-16] MEDS: ASPIRIN 81 MG CHEWABLE TABLETS PO SCH (10:02)
[2018-07-16] MEDS: PRENATAL VITAMINS W/ FOLIC ACID TABLET (FP) PO SCH (10:02)
[2018-07-16] MEDS: METHYL SALICYLATE/MENTHOL OINT 30 GM TUBE TP SCH (10:02)
[2018-07-16] MEDS: ACETAMINOPHEN 325 MG TABLET (FP) PO PRN (10:03)
--- NOTE | 2018-07-16 13:26 | PN ---
[facility] Progress Note (SOAP) Subjective: Patient states is going [facility] in-patient long-term rehab and needs a PPD that is within 90 days. Requesting a PPD to facilitate admission into rehab. Still c/o (R) knee pain. States pain is more achy then sharp, and decreased from yesterday. States knee pain is chronic and has had x-rays as an out- patient. States swelling in legs have decreased since admission. Objective: A & O x 3. (R) knee tender when bent/flexed. No increased erythema or temperature. Gait steady. Using a cane. BLE edema toes to knee (R) > (L). Pedal pulses present. Vital Signs 07/16/18 07/16/18 06:52 10:00 Temperature 98.7 F Pulse Rate 93 H 90 Respiratory 16 Rate Blood Pressure 129/92 121/78 Assessment: Alcohol remission. Opiate Dependency on agonist maintenance (R) joint tenderness Edema Plan: PPD ordered to facilitate admission into [facility] Encourage elevation of leg at intervals during day and HS Continue to use cane for support. Continue current meds. Continue rehab.
[2018-07-16] MEDS ORDERED: TUBERCULIN PPD 5 TU/0.1ML VIAL ID ONE (15:03)
[2018-07-16] MEDS: DOXAZOSIN MESYLATE 4 MG TABLET PO SCH (21:29)
[2018-07-16] MEDS: ATORVASTATIN CA 40 MG TABLET (FP) PO SCH (21:29)
[2018-07-16] MEDS: THIAMINE HCL 100 MG TABLET (FP) PO SCH (21:29)
[2018-07-16] MEDS: MELATONIN 5 MG TABLETS PO PRN (21:30)
[2018-07-17] MEDS: hydrOXYzine PAMOATE 50 MG CAPSULE (FP) PO PRN ×4 (06:04→21:31)
[2018-07-17] MEDS: IBUPROFEN 400 MG TABLET (FP) PO PRN ×3 (06:05→21:30)
[2018-07-17] MEDS: ASPIRIN 81 MG CHEWABLE TABLETS PO SCH (09:56)
[2018-07-17] MEDS: BUPRENORPHINE/NALOXONE 8 MG/2 MG FILM PACKET SL SCH (09:56)
[2018-07-17] MEDS: HYDROCHLOROTHIAZIDE 12.5 MG CAPSULE (FP) PO SCH (09:56)
[2018-07-17] MEDS: METHYL SALICYLATE/MENTHOL OINT 30 GM TUBE TP SCH (09:56)
[2018-07-17] MEDS: MAGNESIUM OXIDE 400 MG TABLET (FP) PO SCH (09:56)
[2018-07-17] MEDS: FERROUS SO4 325 MG TABLET (FP) PO SCH (09:56)
[2018-07-17] MEDS: amLODIPine BESYLATE 10 MG TABLET (FP) PO SCH (09:56)
[2018-07-17] MEDS: LOSARTAN POTASSIUM 50 MG TABLET (FP) PO SCH (09:56)
[2018-07-17] MEDS: PRENATAL VITAMINS W/ FOLIC ACID TABLET (FP) PO SCH (09:57)
[2018-07-17] MEDS: ACETAMINOPHEN 325 MG TABLET (FP) PO PRN ×2 (09:58→16:54)
[2018-07-17] MEDS: DOXAZOSIN MESYLATE 4 MG TABLET PO SCH (21:29)
[2018-07-17] MEDS: THIAMINE HCL 100 MG TABLET (FP) PO SCH (21:30)
[2018-07-17] MEDS: ATORVASTATIN CA 40 MG TABLET (FP) PO SCH (21:31)
[2018-07-17] MEDS: MELATONIN 5 MG TABLETS PO PRN (21:37)
[2018-07-18] MEDS: hydrOXYzine PAMOATE 50 MG CAPSULE (FP) PO PRN ×2 (06:39→21:36)
[2018-07-18] MEDS: IBUPROFEN 400 MG TABLET (FP) PO PRN ×3 (06:39→21:36)
[2018-07-18] MEDS: MAGNESIUM OXIDE 400 MG TABLET (FP) PO SCH (10:09)
[2018-07-18] MEDS: LOSARTAN POTASSIUM 50 MG TABLET (FP) PO SCH (10:09)
[2018-07-18] MEDS: amLODIPine BESYLATE 10 MG TABLET (FP) PO SCH (10:09)
[2018-07-18] MEDS: BUPRENORPHINE/NALOXONE 8 MG/2 MG FILM PACKET SL SCH (10:09)
[2018-07-18] MEDS: ASPIRIN 81 MG CHEWABLE TABLETS PO SCH (10:09)
[2018-07-18] MEDS: FERROUS SO4 325 MG TABLET (FP) PO SCH (10:09)
[2018-07-18] MEDS: HYDROCHLOROTHIAZIDE 12.5 MG CAPSULE (FP) PO SCH (10:09)
[2018-07-18] MEDS: PRENATAL VITAMINS W/ FOLIC ACID TABLET (FP) PO SCH (10:09)
[2018-07-18] MEDS: METHYL SALICYLATE/MENTHOL OINT 30 GM TUBE TP SCH (10:10)
[2018-07-18] MEDS: ACETAMINOPHEN 325 MG TABLET (FP) PO PRN (10:12)
[2018-07-18] MEDS: THIAMINE HCL 100 MG TABLET (FP) PO SCH (21:33)
[2018-07-18] MEDS: ATORVASTATIN CA 40 MG TABLET (FP) PO SCH (21:33)
[2018-07-18] MEDS: DOXAZOSIN MESYLATE 4 MG TABLET PO SCH (21:34)
[2018-07-18] MEDS: MELATONIN 5 MG TABLETS PO PRN (21:35)
[2018-07-19] MEDS: IBUPROFEN 400 MG TABLET (FP) PO PRN ×3 (06:33→21:42)
[2018-07-19] MEDS: hydrOXYzine PAMOATE 50 MG CAPSULE (FP) PO PRN ×2 (06:33→21:40)
[2018-07-19] MEDS: ACETAMINOPHEN 325 MG TABLET (FP) PO PRN (10:52)
[2018-07-19] MEDS: BUPRENORPHINE/NALOXONE 8 MG/2 MG FILM PACKET SL SCH (10:53)
[2018-07-19] MEDS: MAGNESIUM OXIDE 400 MG TABLET (FP) PO SCH (10:53)
[2018-07-19] MEDS: PRENATAL VITAMINS W/ FOLIC ACID TABLET (FP) PO SCH (10:53)
[2018-07-19] MEDS: LOSARTAN POTASSIUM 50 MG TABLET (FP) PO SCH (10:53)
[2018-07-19] MEDS: ASPIRIN 81 MG CHEWABLE TABLETS PO SCH (10:53)
[2018-07-19] MEDS: amLODIPine BESYLATE 10 MG TABLET (FP) PO SCH (10:53)
[2018-07-19] MEDS: HYDROCHLOROTHIAZIDE 12.5 MG CAPSULE (FP) PO SCH (10:53)
[2018-07-19] MEDS: FERROUS SO4 325 MG TABLET (FP) PO SCH (10:53)
[2018-07-19] MEDS: METHYL SALICYLATE/MENTHOL OINT 30 GM TUBE TP SCH (10:54)
[2018-07-19] MEDS: DOXAZOSIN MESYLATE 4 MG TABLET PO SCH (21:40)
[2018-07-19] MEDS: MELATONIN 5 MG TABLETS PO PRN (21:40)
[2018-07-19] MEDS: THIAMINE HCL 100 MG TABLET (FP) PO SCH (21:40)
[2018-07-19] MEDS: ATORVASTATIN CA 40 MG TABLET (FP) PO SCH (21:40)
[2018-07-19] MEDS: MAGNESIUM HYDROX 2400MG/30ML ORAL SUSPENSION 30 ML CUP PO PRN (22:17)
[2018-07-20] MEDS: IBUPROFEN 400 MG TABLET (FP) PO PRN ×3 (06:09→21:18)
[2018-07-20] MEDS: hydrOXYzine PAMOATE 50 MG CAPSULE (FP) PO PRN ×3 (06:09→21:19)
[2018-07-20] MEDS ORDERED: BUPRENORPHINE HCL 8 MG TAB.SUBL SL SCH (10:00)
[2018-07-20] MEDS: LOSARTAN POTASSIUM 50 MG TABLET (FP) PO SCH (10:37)
[2018-07-20] MEDS: HYDROCHLOROTHIAZIDE 12.5 MG CAPSULE (FP) PO SCH (10:37)
[2018-07-20] MEDS: amLODIPine BESYLATE 10 MG TABLET (FP) PO SCH (10:37)
[2018-07-20] MEDS: FERROUS SO4 325 MG TABLET (FP) PO SCH (10:37)
[2018-07-20] MEDS: METHYL SALICYLATE/MENTHOL OINT 30 GM TUBE TP SCH (10:37)
[2018-07-20] MEDS: ASPIRIN 81 MG CHEWABLE TABLETS PO SCH (10:37)
[2018-07-20] MEDS: PRENATAL VITAMINS W/ FOLIC ACID TABLET (FP) PO SCH (10:37)
[2018-07-20] MEDS: MAGNESIUM OXIDE 400 MG TABLET (FP) PO SCH (10:38)
[2018-07-20] MEDS: ACETAMINOPHEN 325 MG TABLET (FP) PO PRN (10:42)
[2018-07-20] MEDS: BUPRENORPHINE/NALOXONE 8 MG/2 MG FILM PACKET SL SCH (11:35)
[2018-07-20] MEDS: THIAMINE HCL 100 MG TABLET (FP) PO SCH (21:18)
[2018-07-20] MEDS: DOXAZOSIN MESYLATE 4 MG TABLET PO SCH (21:18)
[2018-07-20] MEDS: MELATONIN 5 MG TABLETS PO PRN (21:18)
[2018-07-20] MEDS: ATORVASTATIN CA 40 MG TABLET (FP) PO SCH (21:18)
[2018-07-20] MEDS: MAGNESIUM HYDROX 2400MG/30ML ORAL SUSPENSION 30 ML CUP PO PRN (21:20)
[2018-07-21] MEDS: IBUPROFEN 400 MG TABLET (FP) PO PRN ×3 (06:33→21:19)
[2018-07-21] MEDS: hydrOXYzine PAMOATE 50 MG CAPSULE (FP) PO PRN ×4 (06:33→21:19)
[2018-07-21] MEDS: amLODIPine BESYLATE 10 MG TABLET (FP) PO SCH (10:12)
[2018-07-21] MEDS: LOSARTAN POTASSIUM 50 MG TABLET (FP) PO SCH (10:12)
[2018-07-21] MEDS: PRENATAL VITAMINS W/ FOLIC ACID TABLET (FP) PO SCH (10:12)
[2018-07-21] MEDS: HYDROCHLOROTHIAZIDE 12.5 MG CAPSULE (FP) PO SCH (10:12)
[2018-07-21] MEDS: ASPIRIN 81 MG CHEWABLE TABLETS PO SCH (10:12)
[2018-07-21] MEDS: MAGNESIUM OXIDE 400 MG TABLET (FP) PO SCH (10:12)
[2018-07-21] MEDS: FERROUS SO4 325 MG TABLET (FP) PO SCH (10:12)
[2018-07-21] MEDS: BUPRENORPHINE/NALOXONE 8 MG/2 MG FILM PACKET SL SCH (10:12)
[2018-07-21] MEDS: METHYL SALICYLATE/MENTHOL OINT 30 GM TUBE TP SCH (10:14)
--- NOTE | 2018-07-21 10:27 | PN ---
[facility] Progress Note Note: PT C/O NIGHT SWEATS AND ANXIETY. DENIES FEVER,OUGHING,RUNNY NOSE OR HEADACHES. Vital Signs 07/21/18 07/21/18 03:30 06:48 Temperature 97.8 F Pulse Rate 102 H Respiratory 18 18 Rate Blood Pressure 123/92 INCREASE PO FLUIDS VISTARIL PRN
[2018-07-21 14:36] LABS: BASO % 0.5 % (0-2.0); EOS % 4.1 % (0-4.5); HEMATOCRIT 36.8 % (35.4-49); HEMOGLOBIN 11.9 GM/dL (11.7-16.9); LYMPH % 29.5 % (8-40); MCH 29.1 pg (25.7-33.7); MCHC 32.3 g/dl (32.0-35.9); MEAN PLT VOLUME 8.3 fl (7.5-11.1); MONO % 14.6 % (3.8-10.2); NEUT % 51.3 % (42.8-82.8); PLATELET COUNT 331 K/MM3 (134-434); RBC 4.08 M/mm3 (4.00-5.60); RDW 14.3 % (11.9-15.9); WHITE BLOOD COUNT 7.7 K/mm3 (4.0-10.0)
[2018-07-21] MEDS: ATORVASTATIN CA 40 MG TABLET (FP) PO SCH (21:19)
[2018-07-21] MEDS: THIAMINE HCL 100 MG TABLET (FP) PO SCH (21:19)
[2018-07-21] MEDS: MELATONIN 5 MG TABLETS PO PRN (21:19)
[2018-07-21] MEDS: DOXAZOSIN MESYLATE 4 MG TABLET PO SCH (21:19)
[2018-07-21] MEDS: MAGNESIUM HYDROX 2400MG/30ML ORAL SUSPENSION 30 ML CUP PO PRN (21:21)
[2018-07-22] MEDS: hydrOXYzine PAMOATE 50 MG CAPSULE (FP) PO PRN ×4 (06:42→21:27)
[2018-07-22] MEDS: IBUPROFEN 400 MG TABLET (FP) PO PRN ×3 (06:42→21:27)
[2018-07-22] MEDS: ASPIRIN 81 MG CHEWABLE TABLETS PO SCH (10:20)
[2018-07-22] MEDS: BUPRENORPHINE/NALOXONE 8 MG/2 MG FILM PACKET SL SCH (10:20)
[2018-07-22] MEDS: FERROUS SO4 325 MG TABLET (FP) PO SCH (10:20)
[2018-07-22] MEDS: HYDROCHLOROTHIAZIDE 12.5 MG CAPSULE (FP) PO SCH (10:20)
[2018-07-22] MEDS: MAGNESIUM OXIDE 400 MG TABLET (FP) PO SCH (10:20)
[2018-07-22] MEDS: LOSARTAN POTASSIUM 50 MG TABLET (FP) PO SCH (10:20)
[2018-07-22] MEDS: amLODIPine BESYLATE 10 MG TABLET (FP) PO SCH (10:20)
[2018-07-22] MEDS: ACETAMINOPHEN 325 MG TABLET (FP) PO PRN (10:21)
[2018-07-22] MEDS: PRENATAL VITAMINS W/ FOLIC ACID TABLET (FP) PO SCH (10:23)
[2018-07-22] MEDS: METHYL SALICYLATE/MENTHOL OINT 30 GM TUBE TP SCH (10:24)
[2018-07-22] MEDS: THIAMINE HCL 100 MG TABLET (FP) PO SCH (21:27)
[2018-07-22] MEDS: MELATONIN 5 MG TABLETS PO PRN (21:27)
[2018-07-22] MEDS: ATORVASTATIN CA 40 MG TABLET (FP) PO SCH (21:27)
[2018-07-22] MEDS: DOXAZOSIN MESYLATE 4 MG TABLET PO SCH (21:27)
[2018-07-23] MEDS: IBUPROFEN 400 MG TABLET (FP) PO PRN ×3 (06:21→21:21)
[2018-07-23] MEDS: MAGNESIUM OXIDE 400 MG TABLET (FP) PO SCH (09:57)
[2018-07-23] MEDS: LOSARTAN POTASSIUM 50 MG TABLET (FP) PO SCH (09:57)
[2018-07-23] MEDS: amLODIPine BESYLATE 10 MG TABLET (FP) PO SCH (09:57)
[2018-07-23] MEDS: HYDROCHLOROTHIAZIDE 12.5 MG CAPSULE (FP) PO SCH (09:57)
[2018-07-23] MEDS: ASPIRIN 81 MG CHEWABLE TABLETS PO SCH (09:57)
[2018-07-23] MEDS: BUPRENORPHINE/NALOXONE 8 MG/2 MG FILM PACKET SL SCH (09:57)
[2018-07-23] MEDS: FERROUS SO4 325 MG TABLET (FP) PO SCH (09:58)
[2018-07-23] MEDS: hydrOXYzine PAMOATE 50 MG CAPSULE (FP) PO PRN ×3 (09:59→21:22)
[2018-07-23] MEDS: ACETAMINOPHEN 325 MG TABLET (FP) PO PRN (09:59)
[2018-07-23] MEDS: PRENATAL VITAMINS W/ FOLIC ACID TABLET (FP) PO SCH (10:01)
[2018-07-23] MEDS: METHYL SALICYLATE/MENTHOL OINT 30 GM TUBE TP SCH (10:01)
--- NOTE | 2018-07-23 13:07 | PN ---
[facility] Progress Note Note: Met w/ patient today who is preparing for discharge on Thursday. Patient states has all of his medications, including Suboxone, and does not need refill. Patient requesting an early release on Thursday. Patient states is going to his OTP w/ the Suboxone he has left in his possession and return it. He states he plans on going to [facility] on Thursday, as part of his discharge planning. Patient verbalized an understanding of overdose risks and prevention.
[2018-07-23] MEDS: ATORVASTATIN CA 40 MG TABLET (FP) PO SCH (21:21)
[2018-07-23] MEDS: DOXAZOSIN MESYLATE 4 MG TABLET PO SCH (21:21)
[2018-07-23] MEDS: THIAMINE HCL 100 MG TABLET (FP) PO SCH (21:21)
[2018-07-23] MEDS: MELATONIN 5 MG TABLETS PO PRN (21:22)
[2018-07-24] MEDS: IBUPROFEN 400 MG TABLET (FP) PO PRN ×3 (06:21→21:37)
[2018-07-24] MEDS: hydrOXYzine PAMOATE 50 MG CAPSULE (FP) PO PRN ×4 (06:21→21:37)
[2018-07-24] MEDS: amLODIPine BESYLATE 10 MG TABLET (FP) PO SCH (10:05)
[2018-07-24] MEDS: HYDROCHLOROTHIAZIDE 12.5 MG CAPSULE (FP) PO SCH (10:05)
[2018-07-24] MEDS: ASPIRIN 81 MG CHEWABLE TABLETS PO SCH (10:05)
[2018-07-24] MEDS: METHYL SALICYLATE/MENTHOL OINT 30 GM TUBE TP SCH (10:05)
[2018-07-24] MEDS: LOSARTAN POTASSIUM 50 MG TABLET (FP) PO SCH (10:05)
[2018-07-24] MEDS: MAGNESIUM OXIDE 400 MG TABLET (FP) PO SCH (10:05)
[2018-07-24] MEDS: PRENATAL VITAMINS W/ FOLIC ACID TABLET (FP) PO SCH (10:06)
[2018-07-24] MEDS: FERROUS SO4 325 MG TABLET (FP) PO SCH (10:06)
[2018-07-24] MEDS: BUPRENORPHINE/NALOXONE 8 MG/2 MG FILM PACKET SL SCH (10:06)
[2018-07-24] MEDS: ACETAMINOPHEN 325 MG TABLET (FP) PO PRN (10:09)
[2018-07-24] MEDS: THIAMINE HCL 100 MG TABLET (FP) PO SCH (21:34)
[2018-07-24] MEDS: DOXAZOSIN MESYLATE 4 MG TABLET PO SCH (21:35)
[2018-07-24] MEDS: ATORVASTATIN CA 40 MG TABLET (FP) PO SCH (21:35)
[2018-07-24] MEDS: MELATONIN 5 MG TABLETS PO PRN (21:37)
[2018-07-25] MEDS: hydrOXYzine PAMOATE 50 MG CAPSULE (FP) PO PRN ×4 (06:51→21:16)
[2018-07-25] MEDS: IBUPROFEN 400 MG TABLET (FP) PO PRN ×2 (06:52→16:29)
[2018-07-25] MEDS: amLODIPine BESYLATE 10 MG TABLET (FP) PO SCH (10:13)
[2018-07-25] MEDS: BUPRENORPHINE/NALOXONE 8 MG/2 MG FILM PACKET SL SCH (10:13)
[2018-07-25] MEDS: LOSARTAN POTASSIUM 50 MG TABLET (FP) PO SCH (10:13)
[2018-07-25] MEDS: MAGNESIUM OXIDE 400 MG TABLET (FP) PO SCH (10:13)
[2018-07-25] MEDS: HYDROCHLOROTHIAZIDE 12.5 MG CAPSULE (FP) PO SCH (10:13)
[2018-07-25] MEDS: FERROUS SO4 325 MG TABLET (FP) PO SCH (10:13)
[2018-07-25] MEDS: ASPIRIN 81 MG CHEWABLE TABLETS PO SCH (10:13)
[2018-07-25] MEDS: ACETAMINOPHEN 325 MG TABLET (FP) PO PRN ×2 (10:14→21:16)
[2018-07-25] MEDS: METHYL SALICYLATE/MENTHOL OINT 30 GM TUBE TP SCH (10:16)
[2018-07-25] MEDS: PRENATAL VITAMINS W/ FOLIC ACID TABLET (FP) PO SCH (10:16)
[2018-07-25] MEDS: THIAMINE HCL 100 MG TABLET (FP) PO SCH (21:15)
[2018-07-25] MEDS: DOXAZOSIN MESYLATE 4 MG TABLET PO SCH (21:16)
[2018-07-25] MEDS: ATORVASTATIN CA 40 MG TABLET (FP) PO SCH (21:16)
[2018-07-25] MEDS: MELATONIN 5 MG TABLETS PO PRN (21:17)
[2018-07-26] MEDS: hydrOXYzine PAMOATE 50 MG CAPSULE (FP) PO PRN ×2 (06:02→09:10)
[2018-07-26] MEDS: IBUPROFEN 400 MG TABLET (FP) PO PRN (06:02)
--- NOTE | 2018-07-26 06:22 | PN ---
Psychiatric Progress Note Vital Signs: Vital Signs Period Temp Pulse Resp BP Sys/Castaneda Pulse Ox Last 24 Hr 98.1 F 88-90 -18 111-132/74-88 Date of Session: 07/26/18 Chief Complaint:: Discharge Note HPI: Patient addressing Alcohol Dependence comorbid with Oipiod Dependence on Agonist Therapy and Nicotine Dependence ROS: HTN, HLD were medically managed Current Medications: Active Medications Generic Name Dose Route Start Last Admin Trade Name Freq PRN Reason Stop Dose Admin Acetaminophen 650 mg 07/06/18 14:51 07/25/18 21:16 Tylenol - PO 650 mg Q4H PRN Administration FEVER Al Hydroxide/Mg Hydroxide 30 ml 07/06/18 14:51 Mylanta Oral Suspension - PO Q6H PRN DYSPEPSIA Amlodipine Besylate 10 mg 07/09/18 10:00 07/25/18 10:13 Norvasc - PO 10 mg DAILY VIDAL Administration Aspirin 81 mg 07/09/18 10:00 07/25/18 10:13 Asa - PO 81 mg DAILY VIDAL Administration Atorvastatin Calcium 40 mg 07/06/18 22:00 07/25/18 21:16 Lipitor - PO 40 mg HS VIDAL Administration Buprenorphine/Naloxone 1 each 07/20/18 11:15 07/25/18 10:13 Suboxone 8mg/2mg Sl Film - SL 07/27/18 11:14 1 each DAILY VIDAL Administration Doxazosin Mesylate 4 mg 07/06/18 22:00 07/25/18 21:16 Cardura - PO 4 mg HS VIDAL Administration Eucalyptus/Menthol/Phenol/Sorbitol 1 each 07/06/18 14:51 Cepastat Lozenge - MM Q4H PRN SORE THROAT Ferrous Sulfate 325 mg 07/06/18 15:45 07/25/18 10:13 Feosol - PO 325 mg DAILY VIDAL Administration Guaifenesin 10 ml 07/06/18 14:51 Robitussin Dm - PO Q6H PRN COUGH Hydrochlorothiazide 12.5 mg 07/09/18 10:00 07/25/18 10:13 Hctz - PO 12.5 mg DAILY VIDAL Administration Hydroxyzine Pamoate 50 mg 07/06/18 14:51 07/26/18 06:02 Vistaril - PO 50 mg Q4H PRN Administration AGITATION Ibuprofen 400 mg 07/06/18 14:51 07/26/18 06:02 Motrin - PO 400 mg Q6H PRN Administration Pain Level 4-6 Loperamide HCl 4 mg 07/06/18 14:51 Imodium - PO Q6H PRN DIARRHEA Losartan Potassium 100 mg 07/07/18 10:00 07/25/18 10:13 Cozaar - PO 100 mg DAILY VIDAL Administration Magnesium Citrate 300 ml 07/06/18 14:51 Citroma - PO Q48H PRN CONSTIPATION Magnesium Hydroxide 30 ml 07/06/18 14:51 07/21/18 21:21 Milk Of Magnesia - PO 30 ml DAILY PRN Administration CONSTIPATION Magnesium Oxide 400 mg 07/07/18 10:00 07/25/18 10:13 Mag-Ox - PO 400 mg DAILY VIDAL Administration Melatonin 5 mg 07/06/18 22:00 07/25/18 21:17 Melatonin PO 5 mg HS PRN Administration INSOMNIA Methyl Salicylate 1 applic 07/12/18 12:45 07/25/18 10:16 Mike-Partida - TP Not Given DAILY VIDAL Multivit/Folic Acid/Iron 1 tab 07/07/18 10:00 07/25/18 10:16 Vitamins (Sjr) - PO 1 tab DAILY VIDAL Administration Pseudoephedrine/Triprolidine 1 combo 07/06/18 14:51 Actifed - PO TID PRN NASAL CONGESTION Thiamine HCl 100 mg 07/06/18 22:00 07/25/18 21:15 Vitamin B1 - PO 100 mg HS VIDAL Administration Current Side Effect: No Lab tests ordered: Yes Lab tests reviewed: Yes Provider note:: Patient has complete this program today. He has met his treatment goals and will continue to address his issues in [facility] residential treatment at [facility] [place] [address]. Told press writer that from his participation in this program, he has learned the importance of surrounding himself with a sober support network in order to maintain abstinence. He is stable for discharged today Total face to face time:: 35 Mental Status Exam - Mental Status Exam Alert and Oriented to: Time, Place, Person Cognitive Function: Fair Patient Appearance: Well Groomed Mood: Hopeful, Euthymic Affect: Appropriate Patient Behavior: Cooperative Speech Pattern: Clear Voice Loudness: Normal Thought Process: Intact, Goal Oriented Thought Disorder: Not Present Hallucinations: Denies Suicidal Ideation: Denies Homicidal Ideation: Denies Insight/Judgement: Fair Sleep: Fair Appetite: Good Muscle strength/Tone: Normal Gait/Station: Normal Psychiatric Treatment Plan - Problem List (1) Alcohol dependence Current Visit: Yes (2) Opioid dependence on agonist therapy Current Visit: Yes (3) Nicotine dependence Current Visit: Yes Qualifiers: Nicotine product type: cigarettes Substance use status: in withdrawal Qualified Code(s): F17.213 - Nicotine dependence, cigarettes, with withdrawal Initial treatment plan: Patient is discharged today and referred to [facility] for [facility] residential treatment
--- NOTE | 2018-07-26 06:25 | PN ---
S Progress Note Note: Psychiatry Attending's on-call note : Called to enter discharge order. Patient is unknown to this health underwriter. Recommendation : Instruct patient to wait for psychiatrist. Pre-discharge assessment : pending. Coverage psychiatrist will be available at 8 AM.
[2018-07-26 07:14] VITALS: BP 140/89; PULSE 94; TEMP 99
[2018-07-26] MEDS: amLODIPine BESYLATE 10 MG TABLET (FP) PO SCH (09:08)
[2018-07-26] MEDS: MAGNESIUM OXIDE 400 MG TABLET (FP) PO SCH (09:08)
[2018-07-26] MEDS: LOSARTAN POTASSIUM 50 MG TABLET (FP) PO SCH (09:08)
[2018-07-26] MEDS: METHYL SALICYLATE/MENTHOL OINT 30 GM TUBE TP SCH (09:08)
[2018-07-26] MEDS: PRENATAL VITAMINS W/ FOLIC ACID TABLET (FP) PO SCH (09:08)
[2018-07-26] MEDS: BUPRENORPHINE/NALOXONE 8 MG/2 MG FILM PACKET SL SCH (09:08)
[2018-07-26] MEDS: ASPIRIN 81 MG CHEWABLE TABLETS PO SCH (09:08)
[2018-07-26] MEDS: HYDROCHLOROTHIAZIDE 12.5 MG CAPSULE (FP) PO SCH (09:08)
[2018-07-26] MEDS: FERROUS SO4 325 MG TABLET (FP) PO SCH (09:08)
== END 2018-07-26 10:35 | disposition home or self-care (01) | DRG 772 ==
LOC: YASAS 12:55 → Y5N 12:57
PROVIDERS: ADMIT Psychiatry & Neurology Psychiatry; ATTEND Psychiatry & Neurology Psychiatry
PROC: HZ42ZZZ Group Counseling for Substance Abuse Treatment, Cognitive-Behavioral (ICD-10-PCS; principal; 2018-07-06)
DX: F10.20 Alcohol dependence, uncomplicated (principal); F11.20 Opioid dependence, uncomplicated; F17.213 Nicotine dependence, cigarettes, with withdrawal; I10 Essential (primary) hypertension; E78.5 Hyperlipidemia, unspecified; Z51.81 Encounter for therapeutic drug level monitoring
CPT/HCPCS: 36415; 85025; J0735